=== PATIENT | female | born 2005 | race Caucasian/White ===

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

== ENCOUNTER 2023-02-14 11:52 | Emergency (ER) | payer MEDICAID, SELFPAY ==
[2023-02-14 11:57] VITALS: BP 115/79; PULSE 82; RESP 16; TEMP 36.7; O2SAT 100
--- NOTE | 2023-02-14 12:36 | W.ED.HA ---
HPI - Headache General: Chief Complaint: Headache Stated Complaint: Migrane Time Seen by Provider: 02/14/23 12:20 History of Present Illness: Patient presents to the ER with complaints of a migraine starting yesterday. Patient does states she has very frequent migraines. She is not on any migraine medicine. Patient says she has a brain tumor that they have been following for the longest time. Patient also states she has had some nausea and having more confusion than normal. MD elicited complaint: headache and migraine Pertinent past history: migraines Onset (ago): day(s) (Yesterday) Onset description: gradually Location: frontal Severity: moderate Quality & Timing: aching and similar to previous headaches Exacerbating factors: none Relieving factors: nothing Associated symptoms: Reports nausea and vomiting Treatments prior to arrival: none Review of Systems General: Reports: 10 or more systems reviewed and unremarkable except in HPI and below GI: Reports: nausea and vomiting PFS ED PFSH: Medical History Asthma Benign brain tumor Has Neurologist at [facility]. Chronic headaches Chronic sinus infection High thyroid stimulating hormone (TSH) level No pertinent past medical history Neghs: htn,dm,dvt/pe PCP: Sade Chase Surgical History Hx of brain surgery Mid brain tumor- benign; bypass. Has Neurologist at [facility]. Family History Grandmother Breast cancer maternal--unknown dx paternal-- dx in her 30's Diabetes paternal Father Diabetes Heart disease Hypertension Hyperchloremia Stroke Family/Other Diabetes paternal uncle Family history of thyroid problem maternal aunt maternal cousin Grandfather Heart disease maternal Brother Hypertension Hyperchloremia Denies family history of Colon cancer Ovarian cancer Uterine cancer Physical Exam Const: COMMON NORMALS: no acute distress, patient oriented x3, no limitations, healthy appearing, alert and well nourished HENMT: COMMON NORMALS: normocephalic, atraumatic, hearing grossly normal bilaterally, external ears normal, Normal external nose present and moist oral mucous membranes HEAD & SCALP: normocephalic and atraumatic NOSE: Normal external nose present EXTERNAL EAR: Yes external ears normal Eye: COMMON NORMALS: Equal, round and reactive pupils present, EOMs intact bilaterally, conjunctivae normal and no scleral icterus CONJUNCTIVA: Yes conjunctivae normal PUPIL: Yes Equal, round and reactive pupils present Neck/C-Spine: COMMON NORMALS: full ROM, no lymphadenopathy, supple, no meningeal signs, no JVD and Thyroid normal THYROID: Thyroid normal Lymph: LYMPHATIC: no lymphadenopathy noted Chest: COMMONS NORMALS: normal inspection of the chest and normal palpation of entire chest wall Resp: COMMON NORMALS: normal respiratory effort, No retractions, No use of accessory muscles and clear to auscultation bilaterally AUSCULTATION: clear to auscultation bilaterally Cardio: COMMON NORMALS: no JVD, regular rate, regular rhythm, S1 normal heart sound present and S2 normal heart sound present RATE: regular rate RHYTHM: regular rhythm HEART SOUNDS: S1 normal heart sound present and S2 normal heart sound present GI: COMMON NORMALS: Normal to inspection, nondistended, normoactive bowel sounds present, Soft to palpation, non-tender, No hepatosplenomegaly present and no masses PALPATION: Yes Soft to palpation and Yes No hepatosplenomegaly present : COMMON NORMALS: Yes no CVA tenderness BLADDER/KIDNEY EXAM: Yes no CVA tenderness Back/Pelvis: COMMON NORMALS: no CVA tenderness Neuro: COMMON NORMALS: patient oriented x3 SENSORIUM/ORIENTATION: Yes alert MENINGEAL SIGNS: Yes no meningeal signs Course Vital Signs: Vital signs: Vital Signs Temperature 98.1 F 02/14/23 11:57 Pulse Rate 82 02/14/23 11:57 Respiratory Rate 16 02/14/23 11:57 Blood Pressure 115/79 02/14/23 11:57 Pulse Oximetry 100 02/14/23 11:57 Oxygen Delivery Me thod Room Air 02/14/23 11:57 MDM - Headache Medical Decision Making Patient presents to the ER with complaints of migraine headache for the last several days. Patient does have a history of migraines and history of a brain tumor. Patient has tried [id number] medicines and wrist to no avail. Patient was evaluated here in ER as well as had a CT scan which was negative. Patient was given 1 L normal saline, 50 mg Benadryl, 25 mg of Phenergan, 60 mg of Toradol, 10 mg of Decadron, and 500 mg of Depakote. Patient stated that these change her headache. Patient be discharged home to rest and try to sleep it off. Patient should follow-up with her neurologist and/or primary care doctor at next available. Differential Diagnosis Likely migraine and headache; Unlikely tension headache, subarachnoid hemorrhage, meningitis, sinusitis or postconcussion syndrome Medical Records I reviewed the patient's medical records. Lab Data I reviewed the patient's lab results. Radiology Impressions Head CT 02/14/23 13:31 IMPRESSION: Negative noncontrast head CT. Discharge Plan Discharge Patient Disposition: Home Clinical Impression: Migraine Qualifiers: Migraine type: unspecified Status migrainosus presence: without status migrainosus Intractability: not intractable Qualified Code(s): G43.909 - Migraine, unspecified, not intractable, without status migrainosus Condition: Stable Prescriptions: No Action magnesium gluconate 500 mg tablet 500 mg PO TID metoclopramide HCl [Reglan] 10 mg tablet 10 mg PO Q6H PRN (Reason: Nausea And Vomiting) mecobalamin (vitamin B12) [B12 Active] 1,000 mcg tablet,chewable See Rx Instructions PO DAILY Rx Instructions: 250mg orally daily; fluoxetine 20 mg capsule 20 mg PO DAILY Qty: 90 0RF albuterol sulfate 90 mcg/actuation HFA aerosol inhaler 2 puff INHALATION Q6H PRN (Reason: asthma) Qty: 6.7 2RF azelastine-fluticasone 137-50 mcg/spray spray,non-aerosol 1 spray intranasal BID PRN (Reason: Allergy Symptoms) Qty: 23 3RF Rx Instructions: administer into each nostril levocetirizine [Xyzal] 5 mg tablet 5 mg PO DAILY Qty: 90 0RF montelukast 10 mg tablet 10 mg PO DAILY Qty: 90 0RF ibuprofen 800 mg tablet 800 mg PO TID PRN (Reason: pain) Qty: 60 0RF acetaminophen 325 mg capsule 325 mg PO Q4H PRN (Reason: fever or pain) Qty: 60 0RF Discharge Orders: Discharge ED (Routine); Ordered 02/14/23 Ordered By: Tylor Fregoso Referrals: Kalli Chase FNP [Primary Care Provider] - Patient Instructions: Migraine Headache (ED) Activity Restrictions/Additional Instructions: Please follow-up with your family practice doctor and/or your neurologist at the next available appointment. Coding Level of Care Code ED Regional Truck Driver for Stefania Burris
[2023-02-14] MEDS: dexamethasone 10 mg/mL INJ IM (12:38)
[2023-02-14] MEDS: promethazine 25 mg/mL SDV 1 mL IM (12:40)
[2023-02-14] MEDS: ketorolac 60 mg/2 mL INJ IM (12:42)
--- NOTE | 2023-02-14 13:31 | CT_ITS ---
WS: [id number] CT HEAD NONCONTRAST HISTORY: headache, n/v, hx of brain tumor TECHNIQUE: Contiguous axial imaging performed through the brain in 2.5 mm imaging. Bone and soft tiss ue windows. Sagittal and coronal reformats reviewed. All CT scans at [facility] use at least one of these dose optimization techniques: automated exposure control; mA and/or kV adjustment per pa tient size (includes targeted exams where dose is matched to clinical indication); or iterative recon struction. DLP: 1037.68 mGy.cm COMPARISON: 07/14/2020 and 07/12/2020 No acute intracranial hemorrhage, midline shift or mass effect. No atrophy or prior infarcts or herniation. Prominent perivascular space along the LEFT inferior bas al ganglia. Ventricles: Normal size with no hydrocephalus. Paranasal sinuses: As visualized are clear. Mastoid air cells: Well pneumatized. Calvarium and scalp: Skull is intact with no soft tissue edema or swelling. CT/CT head wo con* [id number] IMPRESSION: Negative noncontrast head CT.
[2023-02-14] MEDS: valproic acid inj 500 MG in sodium chloride 0.9% 50 ML 55 MG IV (13:55)
[2023-02-14] MEDS: sodium chloride 0.9% 1,000 ML 999 ML IV (13:55)
[2023-02-14] MEDS: diphenhydrAMINE 50 mg/mL SDV 1mL IVP (13:55)
[2023-02-14 14:59] VITALS: BP 131/76; PULSE 73; RESP 16; O2SAT 100
== END 2023-02-14 15:00 | disposition home or self-care (01) ==
PROVIDERS: Emergency Provider Emergency Medicine; PCP Nurse Practitioner Family
DX: G43.909 Migraine, unspecified, not intractable, without status migrainosus (principal)
CPT/HCPCS: 70450; 96365; 96372; 96375; 99285; J1100; J1200; J1885; J2550; J3490; J7030

== ENCOUNTER 2023-05-07 17:48 | Emergency (ER) | payer MEDICAID, SELFPAY ==
[2023-05-07 17:57] VITALS: BP 135/89; PULSE 82; RESP 15; TEMP 36.8; O2SAT 96
[2023-05-07 18:02] VITALS: BP 128/71; PULSE 80; O2SAT 97
--- NOTE | 2023-05-07 18:28 | ED_ITS ---
HPI - Headache General: Chief Complaint: Headache Stated Complaint: headache, neurologist said go to er Time Seen by Provider: 05/07/23 18:14 Source: patient History of Present Illness: 17-year-old female with a history of migraine headache. She also has a history of benign tumor. She says she has not had an MRI in a while. She had a CT in January that was negative. Her last headache was 2 to 3 weeks ago. She has been taking Tylenol without significant relief. Duration is 2 days. Nausea with no vomiting. No fever. She says she is somewhat dizzy. These are not uncommon symptoms of her headaches. Associated symptoms: Reports nausea and photophobia; Deny chest pain, confusion, cough, eye pain, eye redness, fever(s), neck stiffness, short of breath or vomiting Treatments prior to arrival: acetaminophen Review of Systems Const: Denies: fever(s) ENMT: Denies: throat pain Card: Denies: chest pain Resp: Denies: dyspnea, productive cough or non-productive cough GI: Reports: nausea; Denies: abdominal pain or vomiting Musc: Denies: neck pain Neuro: Reports: headache(s); Denies: numbness in extremities or confusion PFSH ED PFSH: Medical History Asthma Benign brain tumor Has Neurologist at [facility]. Chronic headaches Chronic sinus infection High thyroid stimulating hormone (TSH) level No pertinent past medical history Neghs: htn,dm,dvt/pe PCP: Sade Chase Surgical History Hx of brain surgery Mid brain tumor- benign; bypass. Has Neurologist at [facility]. Family History Grandmother Breast cancer maternal--unknown dx paternal-- dx in her 30's Diabetes paternal Father Diabetes Heart disease Hypertension Hyperchloremia Stroke Family/Other Diabetes paternal uncle Family history of thyroid problem maternal aunt maternal cousin Grandfather Heart disease maternal Brother Hypertension Hyperchloremia Denies family history of Colon cancer Ovarian cancer Uterine cancer Physical Exam Const: COMMON NORMALS: no acute distress GENERAL APPEARANCE: cooperative; not ill appearing and not frail appearing HENMT: COMMON NORMALS: normocephalic, atraumatic and Normal external nose present HEAD & SCALP: normocephalic and atraumatic FACE & SINUS: normal facial exam and face symmetric NOSE: Normal external nose present Eye: COMMON NORMALS: Equal, round and reactive pupils present and EOMs intact bilaterally PUPIL: Yes Equal, round and reactive pupils present DIRECT OPHTHALMOSCOPY: Yes photophobia Neck/C-Spine: GENERAL: Yes trachea midline Chest: CHEST: Yes Symmetrical chest wall rise Resp: COMMON NORMALS: normal respiratory effort, No retractions, No use of accessory muscles and clear to auscultation bilaterally AUSCULTATION: clear to auscultation bilaterally Cardio: COMMON NORMALS: regular rate and regular rhythm RATE: regular rate RHYTHM: regular rhythm GI: COMMON NORMALS: Normal to inspection, nondistended, normoactive bowel sounds present Extremity: COMMON NORMALS: no pedal edema Neuro: LUIS ENRIQUE COMA SCALE: document GCS findings Luis Enrique coma scale eye opening: Spontaneous [place] coma scale verbal response: Orientated Luis Enrique coma scale motor response: Obey commands [place] coma scale total score: 15 SENSORY EXAM: Yes extremities (intact) Psych: COMMON NORMALS: speech normal SPEECH: Yes normal speech Skin: COMMON NORMALS: no rashes or lesions noted GENERAL SKIN EXAM: no rashes or lesions noted Course Vital Signs: Vital signs: Vital Signs Temperature 98.3 F 05/07/23 20:26 Pulse Rate 80 05/07/23 20:26 Respiratory Rate 18 05/07/23 20:26 Blood Pressure 128/71 05/07/23 20:26 Pulse Oximetry 99 05/07/23 20:26 Oxygen Delivery Me thod Room Air 05/07/23 17:57 MDM - Headache Medical Decision Making Patient has no neurological signs or symptoms. Headache is improved after migraine cocktail of medication including Depacon, Reglan, morphine, Toradol, and dexamethasone. She will be allowed discharge. Discharge Plan Discharge Patient Disposition: Home Clinical Impression: Headache Condition: Stable Prescriptions: No Action magnesium gluconate 500 mg tablet 500 mg PO TID metoclopramide HCl [Reglan] 10 mg tablet 10 mg PO Q6H PRN (Reason: Nausea And Vomiting) mecobalamin (vitamin B12) [B12 Active] 1,000 mcg tablet,chewable See Rx Instructions PO DAILY Rx Instructions: 250mg orally daily; fluoxetine 20 mg capsule 20 mg PO DAILY Qty: 90 0RF albuterol sulfate 90 mcg/actuation HFA aerosol inhaler 2 puff INHALATION Q6H PRN (Reason: asthma) Qty: 6.7 2RF azelastine-fluticasone 137-50 mcg/spray spray,non-aerosol 1 spray intranasal BID PRN (Reason: Allergy Symptoms) Qty: 23 3RF Rx Instructions: administer into each nostril levocetirizine [Xyzal] 5 mg tablet 5 mg PO DAILY Qty: 90 0RF montelukast 10 mg tablet 10 mg PO DAILY Qty: 90 0RF ibuprofen 800 mg tablet 800 mg PO TID PRN (Reason: pain) Qty: 60 0RF acetaminophen 325 mg capsule 325 mg PO Q4H PRN (Reason: fever or pain) Qty: 60 0RF Discharge Orders: Discharge ED (Routine); Ordered 05/07/23 Ordered By: Hernandez Pineda Referrals: Kalli Chase, FLIGHT CONTROLS ENGINEER [Primary Care Provider] - 1-3 days Patient Instructions: Acute Headache (ED), Pain Management Activity Restrictions/Additional Instructions: Return for mental status changes, weakness, seizure, any other concerning symptoms. Stay hydrated for the next 24 hours. Follow-up with your doctor next week, if migraine headaches are becoming more frequent, other treatment options may exist. Coding Level of Care Code ED Is/It Project Manager for Stefania Burris
[2023-05-07 18:41] VITALS: RESP 18; O2SAT 99
[2023-05-07] MEDS: morphine 4 mg/mL SDV 1 mL IVP ×2 (18:41→19:51)
[2023-05-07] MEDS: sodium chloride 0.9% 1,000 ML 999 ML IV (18:41)
[2023-05-07] MEDS: ketorolac 30 mg/mL INJ IVP (18:45)
[2023-05-07] MEDS: metoclopramide 5 mg/mL SDV 2 mL 10 MG IVP (18:45)
[2023-05-07] MEDS: dexamethasone 10 mg/mL INJ IVP (18:45)
[2023-05-07] MEDS: valproic acid inj 500 MG in sodium chloride 0.9% 50 ML 55 MG IV (19:51)
[2023-05-07 20:26] VITALS: BP 128/71; PULSE 80; RESP 18; TEMP 36.8; O2SAT 99
== END 2023-05-07 20:27 | disposition home or self-care (01) ==
PROVIDERS: Emergency Provider Emergency Medicine; PCP Nurse Practitioner Family
DX: R51.9 Headache, unspecified (principal)
CPT/HCPCS: 96365; 96375; 96376; 99284; J1100; J1885; J2270; J2765; J3490; J7030

== ENCOUNTER 2023-07-11 11:38 | Emergency (ER) | payer MEDICAID, SELFPAY ==
[2023-07-11 11:39] VITALS: BP 117/80; PULSE 76; RESP 16; TEMP 36.8; O2SAT 99; BMI 34.0
--- NOTE | 2023-07-11 12:12 | ED_ITS ---
HPI - Headache General: Chief Complaint: Headache Stated Complaint: headache/vision issue/diagnosed brain tumor Time Seen by Provider: 07/11/23 11:52 Source: patient Mode of arrival: ambulatory History of Present Illness: 17-year-old female presents to the emergency room with complaint of migraine and a red spot in her eye. Patient chronically has migraines. She has vision changes nausea vomiting with some at times as well. She has remote history of benign brain tumor that was resected several years ago she has had multiple follow-up since and no significant findings. Recent CTs and MRIs reviewed on chart and were normal. Biggest complaint today is that of a red spot at the 6 o'clock position on her right eye. She notes that she has dry eyes at times and she rubs in that area she has noted it seems to be getting bigger. She is not on any anticoagulation. No recent trauma. MD elicited complaint: migraine Onset (ago): day(s) Location: frontal Severity: moderate Quality & Timing: throbbing Exacerbating factors: none Relieving factors: nothing Associated symptoms: Deny chest pain, confusion, cough, diaphoresis, eye pain, eye redness, fever(s), lightheadedness, loss of vision, malaise, nausea, neck stiffness, numbness, paresthesias, photophobia, pre-syncope, rash, seizures, short of breath, sound sensitivity, syncope, vomiting or weakness Review of Systems Const: Denies: fever(s), malaise or diaphoresis Card: Denies: chest pain, lightheadedness, syncope or pre-syncope Resp: Denies: dyspnea GI: Denies: nausea or vomiting : Denies: dysuria, urinary frequency or urinary urgency Musc: Denies: neck pain or back pain Skin/Breast: Denies: rash Neuro: Denies: confusion PFSH ED PFSH: Medical History Asthma Benign brain tumor Has Neurologist at [facility]. Chronic headaches Chronic sinus infection High thyroid stimulating hormone (TSH) level No pertinent past medical history Neghs: htn,dm,dvt/pe PCP: Sade Chase Surgical History Hx of brain surgery Mid brain tumor- benign; bypass. Has Neurologist at [facility]. Family History Grandmother Breast cancer maternal--unknown dx paternal-- dx in her 30's Diabetes paternal Father Diabetes Heart disease Hypertension Hyperchloremia Stroke Family/Other Diabetes paternal uncle Family history of thyroid problem maternal aunt maternal cousin Grandfather Heart disease maternal Brother Hypertension Hyperchloremia Denies family history of Colon cancer Ovarian cancer Uterine cancer Physical Exam Const: COMMON NORMALS: no acute distress GENERAL APPEARANCE: cooperative and comfortable ORIENTATION/CONSCIOUSNESS: Yes awake, Yes oriented to person, Yes oriented to place and Yes oriented to time HENMT: COMMON NORMALS: normocephalic, atraumatic and hearing grossly normal bilaterally HEAD & SCALP: normocephalic and atraumatic Eye: DIRECT OPHTHALMOSCOPY: No photophobia Resp: COMMON NORMALS: normal respiratory effort, No retractions, No use of accessory muscles and clear to auscultation bilaterally AUSCULTATION: clear to auscultation bilaterally Cardio: COMMON NORMALS: regular rate, regular rhythm and No murmurs present (Cardio) RATE: regular rate RHYTHM: regular rhythm GI: COMMON NORMALS: Soft to palpation and No hepatosplenomegaly present AUSCULTATION: Yes normoactive bowel sounds PALPATION: Yes Soft to palpation, No Tenderness to palpation present (GI), No Guarding due to palpation present (GI) and Yes No hepatosplenomegaly present Extremity: COMMON NORMALS: normal to inspection, capillary refill normal, no clubbing, cyanosis or edema, no calf tenderness and no pedal edema Neuro: SENSORIUM/ORIENTATION: Yes oriented to person, Yes oriented to place and Yes oriented to time Skin: COMMON NORMALS: no rashes or lesions noted GENERAL SKIN EXAM: no rashes or lesions noted Course Vital Signs: Vital signs: Vital Signs Temperature 98.3 F 07/11/23 11:39 Pulse Rate 80 07/11/23 12:49 Respiratory Rate 17 07/11/23 12:49 Blood Pressure 133/62 07/11/23 12:49 Pulse Oximetry 96 07/11/23 12:49 Oxygen Delivery Me thod Room Air 07/11/23 11:39 MDM - Headache Medical Decision Making There are no focal neurologic deficits noted. Her migraines are chronic. She has a small subconjunctival hematoma. Given her history or current symptoms or findings I do not believe she requires any advanced imaging. For the dry eyes think she should use preservative-free eyedrops liberally. She admits to rubbing her eyes frequently because of her dry eyes I think some of this is from trauma. Additionally myxomas from the vomiting that she has had. We did give her some Phenergan offered several times Encouraged her to consider other medications while in the ER and prophylactic medications at discharge for migraines she states she is dealt with these for a long time and she really would prefer not to do anything different for now. Did encourage her to follow-up with her neurologist I think it would be helpful for her to look at getting started on some kind of migraine prophylaxis. She has not in the past due to the last time it was discussed with her neurologist that she was at the time. Medical Records I reviewed the patient's medical records. Lab Data I reviewed the patient's lab results. No radiology studies performed this visit Discharge Plan Discharge Patient Disposition: Home Clinical Impression: LIEN (subconjunctival hemorrhage), Migraine Condition: Stable Prescriptions: New promethazine 25 mg tablet 25 mg PO Q6H PRN (Reason: Headache, nausea or vomiting) Qty: 20 0RF No Action albuterol sulfate 90 mcg/actuation HFA aerosol inhaler 2 puff INHALATION Q6H PRN (Reason: asthma) Qty: 6.7 2RF ibuprofen 800 mg tablet 800 mg PO TID PRN (Reason: pain) Qty: 60 0RF acetaminophen 325 mg capsule 325 mg PO Q4H PRN (Reason: fever or pain) Qty: 60 0RF magnesium 200 mg Tablet 200 mg PO DAILY fexofenadine 180 mg tablet 180 mg PO DAILY Rx Instructions: Take 1 tablet by mouth once daily Discharge Orders: Discharge ED (Routine); Ordered 07/11/23 Ordered By: Prashanth Cutler Referrals: Kalli Chase FNP [Primary Care Provider] - Discharge Diet: Usual diet Discharge Activity: Increase activity as tolerated Patient Instructions: Opioid Safety, Pain Management Activity Restrictions/Additional Instructions: Follow-up with your neurologist for migraine management. Coding Level of Care Code ED Veterinary Nurse for Stefania Burris
[2023-07-11 12:49] VITALS: BP 133/62; PULSE 80; RESP 17; O2SAT 96
== END 2023-07-11 12:51 | disposition home or self-care (01) ==
PROVIDERS: Emergency Provider Family Medicine; PCP Nurse Practitioner Family
DX: G43.909 Migraine, unspecified, not intractable, without status migrainosus (principal); H11.31 Conjunctival hemorrhage, right eye; X58.XXXA Exposure to other specified factors, initial encounter
CPT/HCPCS: 99283

== ENCOUNTER 2023-10-21 12:18 | Emergency (ER) | payer MEDICAID, SELFPAY ==
[2023-10-21 12:31] VITALS: BP 138/84; PULSE 84; RESP 18; TEMP 36.8; O2SAT 99; BMI 33.6
--- NOTE | 2023-10-21 13:38 | CTR_ITS ---
PROCEDURE INFORMATION: Exam: CT Head Without Contrast Exam date and time: 10/21/2023 3:05 PM Age: 18 years old Clinical indication: Pain; Headache; Additional info: Headache, pressure, n/v TECHNIQUE: Imaging protocol: Computed tomography of the head without contrast. Radiation optimization: All CT scans at this facility use at least one of these dose optimization techniques: automated exposure control; mA and/or kV adjustment per patient size (includes targeted exams where dose is matched to clinical indication); or iterative reconstruction. COMPARISON: CT head wo con* [id number] 02/14/2023 1:42 PM RADIATION DOSE METRICS: Total DLP (mGy-cm): 1010.18 FINDINGS: Brain: Normal. No hemorrhage. Unremarkable white matter. No mass effect. Cerebral ventricles: No ventriculomegaly. Pituitary gland and sella: Normal. Paranasal sinuses: Visualized sinuses are unremarkable. No fluid levels. Mastoid air cells: Visualized mastoid air cells are well aerated. Bones/joints: Unremarkable. No acute fracture. Soft tissues: Unremarkable. CT/CT head wo con* [id number] IMPRESSION: No large territorial infarct or intracranial bleed.
--- NOTE | 2023-10-21 14:00 | W.ED.HA ---
HPI - Headache General: Chief Complaint: Headache Stated Complaint: headache, weakness, nausea Time Seen by Provider: 10/21/23 13:12 History of Present Illness: Patient is a 18 yo female that presents with complaint of migraine. Patient reports she has headaches every day but this 1 is worse since last night. She reports nausea and vomiting, light sensitivity, and some blurry vision. 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 She was referred to [facility] and underwent intracranial procedure with due to hydrocephalus (not a shunt). Patient has not followed up appropriately. He has both neurosurgeon and neurology at [facility] that she has not seen in greater than 1 year. Associated symptoms: Deny chest pain, confusion, fever(s), malaise, nausea, rash or vomiting Review of Systems General: Reports: 10 or more systems reviewed and unremarkable except in HPI and below Const: Denies: fever(s), chills, change in appetite, change in weight, fatigue or malaise Eyes: Denies: change in vision, eye discomfort, eye discharge or eye redness ENMT: Denies: throat pain, enlarged tonsils, odynophagia, hoarseness, ear or mastoid pain, ear discharge, change in hearing, tinnitus, nasal discharge, nasal congestion, post nasal drip or sinus pain Card: Denies: chest pain, palpitations, irregular heart rhythm, edema, dyspnea on exertion, orthopnea or leg pain with exertion Resp: Denies: dyspnea, productive cough, non-productive cough, wheezing, stridor or chest congestion GI: Denies: abdominal pain, nausea, vomiting, dysphagia, diarrhea, constipation, bloating, GI cramping or hematochezia : Denies: flank pain, difficulty voiding, dysuria, urinary frequency, urinary urgency, urinary hesitancy, oliguria or hematuria Musc: Denies: neck pain, back pain, extremity pain, joint pain, joint swelling, joint redness, joint warmth or muscle weakness Skin/Breast: Denies: rash, pruritus, erythema, photosensitivity or new lesions Neuro: Reports: headache(s) and sensory changes (Left upper and left lower extremity-chronic); Denies: numbness in extremities, weakness in extremities, lack of coordination, difficulty walking, frequent falls, dizziness, confusion, Slurred speech present, difficulty communicating thoughts, seizure-like activity or involuntary movements Endo: Denies: polyuria, polydipsia or tired all the time Brendon/Lymph: Denies: easy bruising or easy bleeding PFSH ED PFSH: Medical History Asthma Benign brain tumor Has Neurologist at [facility]. Chronic headaches Chronic sinus infection High thyroid stimulating hormone (TSH) level No pertinent past medical history Neghs: htn,dm,dvt/pe PCP: Sade Chase Surgical History Hx of brain surgery Mid brain tumor- benign; bypass. Has Neurologist at [facility]. Family History Grandmother Breast cancer maternal--unknown dx paternal-- dx in her 30's Diabetes paternal Father Diabetes Heart disease Hypertension Hyperchloremia Stroke Family/Other Diabetes paternal uncle Family history of thyroid problem maternal aunt maternal cousin Grandfather Heart disease maternal Brother Hypertension Hyperchloremia Denies family history of Colon cancer Ovarian cancer Uterine cancer Physical Exam Const: COMMON NORMALS: no acute distress, patient oriented x3 and alert GENERAL APPEARANCE: cooperative ORIENTATION/CONSCIOUSNESS: Yes awake, Yes oriented to person, Yes oriented to place and Yes oriented to time HENMT: COMMON NORMALS: normocephalic and atraumatic HEAD & SCALP: normocephalic and atraumatic FACE & SINUS: normal facial exam MOUTH: Normal oral and palatal mucosa present THROAT: posterior oropharynx normal Eye: COMMON NORMALS: Equal, round and reactive pupils present, EOMs intact bilaterally, conjunctivae normal and no scleral icterus GENERAL EYE: appearance normal, both eyes and all related structures VISUAL ACUITY: Yes acuity normal VISUAL GAMEZ: No peripheral vision loss and No central vision loss ALIGNMENT: Yes alignment normal PERIORBITAL: periorbital findings normal CONJUNCTIVA: Yes conjunctivae normal PUPIL: Yes Equal, round and reactive pupils present and Yes Pupil accommodation reflex normal Neck/C-Spine: COMMON NORMALS: full ROM GENERAL: Yes normal visual inspection Lymph: LYMPHATIC: no lymphadenopathy noted Chest: COMMONS NORMALS: normal inspection of the chest Breast/axilla inspection: Yes no chest deformity, asymmetry, normal contours, no nodules, masses, tenderness Resp: COMMON NORMALS: normal respiratory effort, No retractions, No use of accessory muscles and clear to auscultation bilaterally EFFORT & INSPECTION: Yes able to speak in complete sentences and Yes symmetric chest movement AUSCULTATION: clear to auscultation bilaterally Cardio: COMMON NORMALS: regular rate, regular rhythm and Peripheral pulses 2+ throughout RATE: regular rate RHYTHM: regular rhythm PERIPHERAL PULSES: Peripheral pulses 2+ throughout GI: COMMON NORMALS: Normal to inspection, nondistended, normoactive bowel sounds present, Soft to palpation, non-tender and No hepatosplenomegaly present INSPECTION: Yes normal to inspection AUSCULTATION: Yes normoactive bowel sounds PALPATION: Yes Soft to palpation and Yes No hepatosplenomegaly present RECTAL EXAM: deferred Extremity: COMMON NORMALS: normal to inspection GENERAL: Yes normal exam except as noted Neuro: LUIS ENRIQUE COMA SCALE: document [facility] findings Luis Enrique coma scale eye opening: Spontaneous [place] coma scale verbal response: Orientated [place] coma scale motor response: Obey commands [place] coma scale total score: 15 COMMON NORMALS: patient oriented x3 SENSORIUM/ORIENTATION: Yes alert, Yes oriented to person, Yes oriented to place and Yes oriented to time CRANIAL NERVES: Yes CN normal except as noted OTHER: Possible 1-2 beats nystagmus when looking up into the right. Difficult to replicate Psych: COMMON NORMALS: mental status grossly normal, Normal thought process present, cooperative, activity/motor behavior normal, denies homicidal ideation and denies suicidal ideation THOUGHT PROCESS: Normal thought process present Skin: COMMON NORMALS: no rashes or lesions noted, no wounds and turgor normal GENERAL SKIN EXAM: no rashes or lesions noted and turgor normal Course Vital Signs: Vital signs: Vital Signs Temperature 98.3 F 10/21/23 12:31 Pulse Rate 84 10/21/23 12:31 Respiratory Rate 18 10/21/23 12:31 Blood Pressure 138/84 10/21/23 12:31 Pulse Oximetry 99 10/21/23 12:31 Oxygen Delivery Me thod Room Air 10/21/23 12:31 [facility] - Headache Medical Decision Making Juli is a 18-year-old female with history of glioma that came in presenting with acute on chronic headache. Patient has a history of migraines but this headache seemed somewhat worse. She describes the pain as pressure. I did obtain a CT to assess for hydrocephalus,, hemorrhage, stroke. No acute findings on CT. I did treat her initially with Norflex, Toradol, Decadron to which she had some improvement but still had residual headache. Sumatriptan ordered. While awaiting this patient wanted to discharge home and follow-up with her neurosurgeon and neurologist in 2 weeks as planned. Since she has no neurodeficits and is completely appropriate at that I would allow her to discharge home with follow-up. I reviewed the case with Dr. Josue who is in agreement. Patient is to return to the emergency department for new concerning or worsening symptoms. Lab Data Radiology Impressions Head CT 10/21/23 13:38 IMPRESSION: No large territorial infarct or intracranial bleed. All radiology interpretation(s) finalized by discharge Discharge Plan Discharge Patient Disposition: Home Clinical Impression: Migraine Condition: Stable Prescriptions: No Action No Known Home Medications Discharge Orders: Discharge ED (Routine); Ordered 10/21/23 Ordered By: Jonathan Marte Referrals: Kalli Chase FNP [Primary Care Provider] - Discharge Diet: Advance as tolerated Discharge Activity: Resume usual activity Patient Instructions: Low-Grade Glioma (DC), Acute Headache (DC), Pain Management Activity Restrictions/Additional Instructions: Please follow-up with your neurosurgeon and neurologist as planned Please return to the emergency department for new concerning or worsening symptoms Coding Level of Care Code ED Computer Service Technician for Stefania Burris
[2023-10-21] MEDS: orphenadrine 30 mg/mL Inj 2 mL 60 MG IM (14:02)
[2023-10-21] MEDS: dexamethasone 10 mg/mL INJ IM (14:04)
[2023-10-21] MEDS: ketorolac 60 mg/2 mL INJ IM (14:06)
[2023-10-21] MEDS: SUMAtriptan 25 mg Tablet PO (16:44)
[2023-10-21 16:56] VITALS: BP 122/84; PULSE 80; O2SAT 98
== END 2023-10-21 16:58 | disposition home or self-care (01) ==
PROVIDERS: Emergency Provider Nurse Practitioner; PCP Nurse Practitioner Family
DX: G43.909 Migraine, unspecified, not intractable, without status migrainosus (principal)
CPT/HCPCS: 70450; 96372; 99284; J1100; J1885; J2360

== ENCOUNTER 2024-09-03 19:14 | Emergency (ER) | payer MEDICAID, SELFPAY ==
[2024-09-03] VITALS (8 sets, daily range): BP systolic 103–134; BP diastolic 49–83; PULSE 58–74; RESP 14; TEMP 36.7; O2SAT 92–100
[2024-09-03 20:45] LABS: Basophils % 0.4 %; Eosinophils # 0.4 10^3/uL (0.0-0.8); Eosinophils % 3.3 %; Hematocrit 41.2 % (36-47); Lymphocytes # 2.2 10^3/uL (0.8-4.8); Lymphocytes % 19.9 %; Mean Corpuscular HGB Conc 31.1 g/dL (30-55); Mean Corpuscular Hemoglobin 28.9 pg (27-33); Monocytes # 0.7 10^3/uL (0.2-0.9); Monocytes % 6.1 %; Neutrophils # 7.75 10^3/uL (1.8-7.7); Neutrophils % 69.9 %; Nucleated Red Blood Cells % 0 %; Platelet Count 302 10^3/cmm (157-399); Red Blood Count 4.43 10^6/uL (3.85-5.65); Red Cell Distribution Width 12.6 % (12.1-15.1); White Blood Count 11.07 10^3/uL (3.29-11.43)
[2024-09-03 21:00] LABS: HCG, Serum Qual Negative (Negative)
[2024-09-03 21:06] LABS: Alanine Aminotransferase 14 U/L (0-33); Albumin Level 4.3 g/dL (3.5-5.2); Alkaline Phosphatase 97 U/L (35-105); Anion Gap 19.3 (5-19); Aspartate Amino Transferase 15 U/L (0-32); Blood Urea Nitrogen 13 mg/dL (6-20); Calcium 9.7 mg/dL (8.5-10.5); Carbon Dioxide 28 mmol/L (22-29); Chloride 103 mmol/L (98-107); Creatinine Clr Calc Pharmacy 132.2841; Globulin 3.7 g/dL (1.3-4.6); Glomerular Filtration Rate 105.6 mL/min (90-130); Glucose 83 mg/dL (65-115); Lipase 26 U/L (13-60); Osmolality Calculated 301 mOsm/kg (285-295); Potassium 4.3 mmol/L (3.5-5.1); Sodium 146 mmol/L (136-145); Total Bilirubin 0.5 mg/dL (0.15-1.2)
[2024-09-03 21:12] LABS: Bilirubin Urine Negative (Negative); Blood Urine Negative (Negative); Glucose Urine UA Negative (Normal); Ketones Urine Trace (Negative); Leukocyte Esterase Urine Negative (Negative); Nitrate Urine Negative (Negative); Protein Urine Negative (Negative); Specific Gravity, Urine 1.028 (1.005-1.030); Urine Appearance Cloudy (CLEAR); Urine Color Yellow (Yellow); pH Urine 5.5 (5-7)
[2024-09-03 21:17] LABS: Add Urine Microscopic? YES; Bacteria Urine 4+ /hpf; Hyaline Casts Urine 1.21 /lpf; RBC Urine 0-2 /hpf (0-2); Squamous Epithelial Cell Urine 21-50 /hpf (0-5)
--- NOTE | 2024-09-03 21:26 | CTR_ITS ---
PROCEDURE INFORMATION: Exam: CT Abdomen And Pelvis With Contrast Exam date and time: 09/03/2024 9:55 PM Age: 19 years old Clinical indication: Abdominal pain; Localized; Right lower quadrant (rlq); Additional info: Rlq abd pain with anorexia and vomiting TECHNIQUE: Imaging protocol: Computed tomography of the abdomen and pelvis with contrast. Radiation optimization: All CT scans at this facility use at least one of these dose optimization techniques: automated exposure control; mA and/or kV adjustment per patient size (includes targeted exams where dose is matched to clinical indication); or iterative reconstruction. Contrast material: OMNI 350; Contrast volume: 100 ml; Contrast route: INTRAVENOUS (IV); COMPARISON: US OB limited [id number] 12/09/2022 10:28 AM RADIATION DOSE METRICS: Total DLP (mGy-cm): 812.05 FINDINGS: Lungs: Lung bases are unremarkable. Liver: The liver is unremarkable. Gallbladder and biliary ducts: No intrahepatic or extrahepatic biliary ductal dilatation. The gallbladder is unremarkable with no radioopaque stone. Pancreas: Pancreas is unremarkable. No ductal dilation or peripancreatic inflammation. Spleen: The spleen is unremarkable. Adrenal glands: Adrenal glands are unremarkable. Kidneys and ureters: No hydronephrosis or nephrolithiasis. Stomach and bowel: Stomach is not fully distended. Small hiatal hernia. Small and large bowel are normal in caliber without evidence of obstruction. Appendix: Appendix is unremarkable. Intraperitoneal space: No free intraperitoneal air. No fluid collection. Vasculature: There is no aortic aneurysm. Origins of the celiac, SMA, HERNAN and renal arteries are patent. Lymph nodes: Multiple prominent mesenteric nodes predominantly in the right lower quadrant, the largest of which measures 5.8 mm anterior to the right psoas muscle. Urinary bladder: No focal wall thickening of the urinary bladder. Reproductive: Uterus is unremarkable. No suspicious adnexal lesion seen. 3.2 cm left ovarian cyst. Bones/joints: No acute osseous abnormality. Soft tissues: There is a small fat containing umbilical hernia. CT/CT abdomen pelvis w con* [id number] IMPRESSION: Mesenteric adenitis.
--- NOTE | 2024-09-03 21:27 | ED_ITS ---
HPI - Abdominal Pain 2 General: Chief Complaint: Abdominal Pain Stated Complaint: abd pain Time Seen by Provider: 09/03/24 21:14 Source: patient Mode of arrival: ambulatory Limitations: no limitations History of Present Illness: Patient is a 19-year-old female with no pertinent past medical history reporting to the emergency department complaining of right lower quadrant abdominal pain for the past week. States it has been constant since but has been specifically worsened today, currently rating it an 8/10 and associated with anorexia and vomiting. She still has her gallbladder and appendix, no history of abdominal surgeries. Last bowel movement was this morning, she does state it was somewhat loose. She is not reporting any fever, chills, syncopal episodes, chest pain or shortness of breath. She does note she is actively trying to get , with the same partner. No female symptoms reported such as vaginal odor or discharge. Notes that her urine was a little cloudy, but no dysuria or hematuria. Has taken antiemetics at home, states this has not helped as much. She does note the pain radiates to the back, no specific alleviating or exacerbating factors reported other than trying to eat seems to make it more prevalent. MD elicited complaint: abdominal pain Pertinent past history: none Onset (ago): week(s) (2) Pain Consistency: intermittent Location: RLQ Severity: severe Pain scale (0-10): 8 Quality: stabbing Radiation: back Exacerbating factors: eating Relieving factors: nothing Associated Symptoms: Reports change in stool character, diarrhea and nausea; Denies bloating, chills, constipation, dysuria, fever(s), hematochezia, hematuria and vomiting Treatments prior to arrival: other (Antiemetics) Related Data Date of Last Menstrual Period: 08/18/24 Home Medications Medication Instructions Recorded Confirmed metoclopramide HCl 10 mg tablet 10 mg PO Q6H PRN 04/24/24 07/10/24 propranolol 10 mg tablet 10 mg PO BID 04/24/24 07/10/24 Previous Rx's Medication Instructions Recorded escitalopram oxalate 10 mg tablet 10 mg PO DAILY #30 tabs 07/10/24 (Lexapro) rizatriptan 5 mg tablet See Rx Instructions PO .COMPLEX #9 07/10/24 tabs Allergies Allergy/AdvReac Type Severity Reaction Status Date / Time cephalexin [From Keflex] Allergy rash Verified 09/03/24 19:49 Review of Systems 2 General: Reports: 10 or more systems reviewed and unremarkable except in HPI and below Const: Reports: change in appetite; Denies: fever(s), chills, change in weight or diaphoresis ENMT: Denies: throat pain or hoarseness Card: Denies: chest pain, palpitations or lightheadedness Resp: Denies: dyspnea, productive cough or wheezing GI: Reports: abdominal pain, nausea, diarrhea and change in stool character; Denies: vomiting, constipation, bloating or hematochezia : Denies: flank pain, difficulty voiding, dysuria, urinary frequency, urinary urgency, hematuria, vaginal odor, vaginal bleeding or vaginal discharge Musc: Reports: back pain; Denies: neck pain Skin/Breast: Denies: rash or new lesions Neuro: Denies: headache(s) or dizziness PFSH ED 2 PFSH: Medical History Migraine headache Incomplete miscarriage Environmental allergies Anxiety managed by PCP Chronic sinus infection Benign brain tumor Has Neurologist at [facility]. Asthma Surgical History Hx of brain surgery Mid brain tumor- benign; bypass. Has Neurologist at [facility]. Family History Grandmother Breast cancer maternal--unknown dx paternal-- dx in her 30's Diabetes paternal Father Diabetes Heart disease Hypertension Hyperchloremia Stroke Family/Other Diabetes paternal uncle Family history of thyroid problem maternal aunt maternal cousin Grandfather Heart disease maternal Brother Hypertension Hyperchloremia Denies family history of Colon cancer Ovarian cancer Uterine cancer Social History Smoking and tobacco/nicotine status: never used tobacco/nicotine Alcohol intake: never Substance/Drug Use: current Substance/Drug use frequency: few times a month Female Reproductive History: Date of last menstrual period: 08/18/24 Physical Exam 2 Const: COMMON NORMALS: no acute distress, patient oriented x3, no limitations, healthy appearing, alert and well nourished GENERAL APPEARANCE: cooperative and comfortable NUTRITIONAL APPEARANCE: obese ORIENTATION/CONSCIOUSNESS: Y es awake OTHER: nontoxic appearing HENMT: COMMON NORMALS: normocephalic, atraumatic, hearing grossly normal bilaterally, external ears normal, Normal external nose present, Normal nasal mucous membranes and turbinates present and moist oral mucous membranes HEAD & SCALP: normocephalic and atraumatic NOSE: Normal external nose present and Normal nasal mucous membranes and turbinates present EXTERNAL EAR: Yes external ears normal Eye: COMMON NORMALS: Equal, round and reactive pupils present, EOMs intact bilaterally, conjunctivae normal and normal visual darden by confrontation C ONJUNCTIVA: Yes conjunctivae normal PUPIL: Yes Equal, round and reactive pupils present Neck/C-Spine: COMMON NORMALS: full ROM, supple, no meningeal signs and no JVD Resp: COMMON NORMALS: normal respiratory effort, No retractions, No use of accessory muscles and clear to auscultation bilaterally AUSCULTATION: clear to auscultation bilaterally, no crackles, no rales, no rhonchi and no wheezes Cardio: COMMON NORMALS: no JVD, regular rate, regular rhythm, S1 normal heart sound present, S2 normal heart sound present, No gallops present (Cardio), No clicks present (Cardio), No murmurs present (Cardio), No rub (Cardio) and Peripheral pulses 2+ throughout RATE: regular rate RHYTHM: regular rhythm HEART SOUNDS: S1 normal heart sound present and S2 normal heart sound present PERIPHERAL PULSES: Peripheral pulses 2+ throughout GI: COMMON NORMALS: Normal to inspection, nondistended, normoactive bowel sounds present, Soft to palpation, No hepatosplenomegaly present and no masses INSPECTION: Yes central obesity AUSCULTATION: Yes normoactive bowel sounds PALPATION: Yes Soft to palpation, No Guarding due to palpation present (GI), No Rigid due to palpation and Yes No hepatosplenomegaly present RECTAL EXAM: d eferred OTHER: Bilateral lower quadrant tenderness to palpation. Negative McBurney's point tenderness. Negative Rovsing sign. Negative Pearl sign. : COMMON NORMALS: Yes no CVA tenderness BLADDER/KIDNEY EXAM: Yes no CVA tenderness Back/Pelvis: COMMON NORMALS: no CVA tenderness Extremity: COMMON NORMALS: normal to inspection and full ROM Neuro: COMMON NORMALS: patient oriented x3, moves all extremities, no focal motor deficits and no sensory deficits noted SENSORIUM/ORIENTATION: Yes alert MENINGEAL SIGNS: Yes no meningeal signs Psych: COMMON NORMALS: mental status grossly normal, cooperative and speech normal SPEECH: Yes normal speech Skin: COMMON NORMALS: no rashes or lesions noted GENERAL SKIN EXAM: no rashes or lesions noted Course 2 Vital Signs: Vital signs: Vital Signs Temperature 98.0 F 09/03/24 19:44 Pulse Rate 72 09/03/24 23:56 Respiratory Rate 14 09/03/24 19:44 Blood Pressure 112/69 09/03/24 23:56 Pulse Oximetry 92 09/03/24 23:56 Oxygen Delivery Me thod Room Air 09/03/24 23:00 MDM - Abdominal Pain Medical Decision Making Patient presenting with right lower quadrant abdominal pain for the past couple of weeks. Her CT scan showing signs of mesenteric adenitis, all of her blood work normal. She states she has appoint with primary care tomorrow, will have her to continue to treat conservatively with alternating Tylenol and ibuprofen and to drink plenty of fluids at home. No surgical abdomen at this time or concern for any infection. She agrees with discharge home. Lab Data 09/03/24 20:35 09/03/24 20:35 Labs/Radiology: Radiology Impressions Abdomen/Pelvis CT 09/03/24 21:26 IMPRESSION: Mesenteric adenitis. Laboratory Results WBC 11.07 10^3/uL (3.29-11.43) 09/03/24 20:35 RBC 4.43 10^6/uL (3.85-5.65) 09/03/24 20:35 Hgb 12.80 g/dL (11.27-16.99) 09/03/24 20:35 Hct 41.2 % (36-47) 09/03/24 20:35 MCV 93.0 fl (85-98) 09/03/24 20:35 MCH 28.9 pg (27-33) 09/03/24 20:35 MCHC 31.1 g/dL (30-55) 09/03/24 20:35 RDW 12.6 % (12.1-15.1) 09/03/24 20:35 Plt Count 302 10^3/cmm (157-399) 09/03/24 20:35 MPV 11.0 fL (7.4-10.4) H 09/03/24 20:35 Neut % (Auto) 69.9 % 09/03/24 20:35 Lymph % (Auto) 19.9 % 09/03/24 20:35 Dent % (Auto) 6.1 % 09/03/24 20:35 Eos % (Auto) 3.3 % 09/03/24 20:35 Baso % (Auto) 0.4 % 09/03/24 20:35 Neut # (Auto) 7.75 10^3/uL (1.8-7.7) H 09/03/24 20:35 Lymph # (Auto) 2.2 10^3/uL (0.8-4.8) 09/03/24 20:35 Dent # (Auto) 0.7 10^3/uL (0.2-0.9) 09/03/24 20:35 Eos # (Auto) 0.4 10^3/uL (0.0-0.8) 09/03/24 20:35 Baso # (Auto) 0.0 10^3/uL (0.0-0.1) 09/03/24 20:35 Nucleated RBC % (auto) 0 % 09/03/24 20:35 Nucleated RBCs # 0.0 /100WBC 09/03/24 20:35 Sodium 146 mmol/L (136-145) H 09/03/24 20:35 Potassium 4.3 mmol/L (3.5-5.1) 09/03/24 20:35 Chloride 103 mmol/L (98-107) 09/03/24 20:35 Carbon Dioxide 28 mmol/L (22-29) 09/03/24 20:35 Anion Gap 19.3 (5-19) H 09/03/24 20:35 BUN 13 mg/dL (6-20) 09/03/24 20:35 Creatinine 0.7 mg/dL (0.5-0.9) 09/03/24 20:35 GFR Calculation 105.6 mL/min (90-130) 09/03/24 20:35 Glucose 83 mg/dL (65-115) 09/03/24 20:35 Calculated Osmolality 301 mOsm/kg (285-295) H 09/03/24 20:35 Calcium 9.7 mg/dL (8.5-10.5) 09/03/24 20:35 Total Bilirubin 0.5 mg/dL (0.15-1.2) 09/03/24 20:35 AST 15 U/L (0-32) 09/03/24 20:35 ALT 14 U/L (0-33) 09/03/24 20:35 Alkaline Phosphatase 97 U/L (35-105) 09/03/24 20:35 Total Protein 8.0 g/dL (6.6-8.7) 09/03/24 20:35 Albumin 4.3 g/dL (3.5-5.2) 09/03/24 20:35 Globulin 3.7 g/dL (1.3-4.6) 09/03/24 20:35 Lipase 26 U/L (13-60) 09/03/24 20:35 HCG, Qual Negative (Negative) 09/03/24 20:35 Urine Color Yellow (Yellow) 09/03/24 21:03 Urine Appearance Cloudy (CLEAR) A 09/03/24 21:03 Urine pH 5.5 (5-7) 09/03/24 21:03 Ur Specific [place] 1.028 (1.005-1.030) 09/03/24 21:03 Urine Protein Negative (Negative) 09/03/24 21:03 Urine Glucose (UA) Negative (Normal) 09/03/24 21:03 Urine Ketones Trace (Negative) 09/03/24 21:03 Urine Blood Negative (Negative) 09/03/24 21:03 Urine Nitrate Negative (Negative) 09/03/24 21:03 Urine Bilirubin Negative (Negative) 09/03/24 21:03 Urine Urobilinogen 1.0 mg/dL (Negative) 09/03/24 21:03 Ur Leukocyte Esterase Negative (Negative) 09/03/24 21:03 Urine RBC 0-2 /hpf (0-2) 09/03/24 21:03 Urine WBC 6-10 /hpf (0-5) 09/03/24 21:03 Ur Squamous Epith Cells 21-50 /hpf (0-5) 09/03/24 21:03 Calcium Oxalate Crystal 5-10 /hpf H 09/03/24 21:03 Amorphous Sediment Not Reportable 09/03/24 21:03 Urine Bacteria 4+ /hpf (NONE) H 09/03/24 21:03 Hyaline Casts 1.21 /lpf 09/03/24 21:03 All radiology interpretation(s) finalized by discharge Discharge Plan Discharge Patient Disposition: Home Clinical Impression: Mesenteric adenitis Condition: Stable Prescriptions: No Action escitalopram oxalate [Lexapro] 10 mg tablet 10 mg PO DAILY Qty: 30 1RF rizatriptan 5 mg tablet See Rx Instructions PO .COMPLEX Qty: 9 3RF Rx Instructions: take 1 tablet at onset of headache; if no relief, may repeat 1 tablet after at least 2 hrs PO propranolol 10 mg tablet 10 mg PO BID metoclopramide HCl 10 mg tablet 10 mg PO Q6H PRN Discharge Orders: Discharge ED (Routine); Ordered 09/03/24 Ordered By: Mauricio Gordon Referrals: Han Trinh MD [Primary Care Provider] - Patient Instructions: Mesenteric Adenitis (ED) Activity Restrictions/Additional Instructions: See attached patient instructions for further education. Likely this is viral, treat conservatively by alternating Tylenol and ibuprofen for any pain or fevers. Make sure to drink plenty of fluids. Please follow-up with primary care and return with any new or worsening. Coding Level of Care Code ED Electroencephalograph Technologist for Stefania Burris
[2024-09-03] MEDS: ondansetron 2 mg/ML SDV 2 mL 8 MG IVP (21:35)
[2024-09-03 21:41] LABS: UA Slide Review UA Slide Review Perf
[2024-09-03] MEDS: iohexol 350 mg/mL 500 mL Btl (per mL) IV (21:58)
== END 2024-09-03 23:56 | disposition home or self-care (01) ==
PROVIDERS: Emergency Medicine; Emergency Provider Physician Assistant; PCP Family Medicine
DX: I88.0 Nonspecific mesenteric lymphadenitis (principal)
CPT/HCPCS: 36415; 74177; 80053; 81001; 83690; 84703; 85025; 96374; 99285; J2405

== ENCOUNTER 2025-08-02 21:10 | Emergency (ER) | payer MEDICAID, SELFPAY ==
--- OUTSIDE RECORDS SUMMARY | 2025-08-02 21:15 | XMS_ITS | Clinical Summary ---
Author Organization [facility] Address [address] [place]: Epic Prelude ADT LORI STILES [id number] Care Team Providers Care Identification And Records Commander Name Role Phone Unavailable Primary Care Provider Unavailabl e Allergies Active Allergy Reactions Criticality Noted Date Comments Cephalexin Nausea and Vomiting Low 10/17/2016 Medications neomycin-polymy dave-hydrocortis one (CORTISPORIN) 3.5-10,000-1 mg/mL-unit/mL-% otic solution Administer 3 Drops in left ear 3 times daily. 10 mL 0 8 Active fluticasone propionate (FLONASE) 50 mcg/spray Fine, Suspension nasal inhaler USE 2 SPRAY(S) IN EACH NOSTRIL ONCE DAILY. 48 mL 0 9 Active cetirizine (ZyrTEC) 10 mg tabletIndicatio ns:Upper respiratory tract infection, unspecified type,Acute bronchitis, unspecified organism TAKE 1 TABLET BY MOUTH ONCE DAILY. 90 Tablet 1 9 Active montelukast (SINGULAIR) 5 mg Tablet, ChewableIndicat ions:Acute seasonal allergic rhinitis due to pollen CHEW AND SWALLOW 1 TABLET BY MOUTH ONCE DAILY. 90 Tablet 1 9 Active albuterol HFA 90 mcg inhalerIndicati ons:Acute seasonal allergic rhinitis due to pollen 2 puffs every 6 hours and before activitys. 13.4 Gram 2 8 Active ibuprofen (MOTRIN) 600 mg tablet Take 600 mg by mouth every 6 hours as needed for Pain, Mild. 8 Active EPINEPHrine (EPIPEN) 0.3 mg/0.3 mL Auto-Injector Inject 0.3 mL (0.3 mg) by intramuscular injection 1 time daily as needed for Anaphylaxis. 1 Package 0 8 Active Active Problems Problem Noted Date Diagnosed Date Perennial allergic rhinitis 11/21/2016 Environmental tobacco smoke exposure 11/10/2015 Immunizations Immunization Administration Dates Next Due (M-M-R II/PRIORIX)(12 MO UP) MEASLES, MUMPS AND RUBELLA VIRUS VACCINE, 0.5 ML IM/SUBCUT 05/11/2009,09/03/2004 (VARIVAX)(12 MOS UP)VARICELL A VIRUS VACCINE (PF) 0.5 ML, SUB CUT 12/02/2004 Dt Dtp Dtap Vaccine 12/02/2004, 4,02/24/2004,2003 HIB, Unspecified Formulation 12/02/2004, 04/28/2004,02/24/2004,2003 Hepatitis B Vaccine 04/28/2004,02/24/2004,2003 IPV/OPV 04/28/2004,02/24/2004,2003 Social History Tobacco Use Types Packs/Day Years Used Date Smoking Tobacco: Passive Smo ke Exposure - Never Smoker Smokeless Tobacco: Never Alcohol Use Standard Drinks/Week Comments No 0 (1 standard drink = 0.6 oz pur e alcohol) Adolescent Education Answer Date Record ed Getting School Help Needed Not on file 04/20 Comments Unknown Sex and Gender Information Value Date Recorded Sex Assigned at Not on file 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 Gender Identity Not on file Sexual Orientation Not on file Last Filed Vital Signs Vital Sign Reading Time Taken Comments Blood Pressure 124/74 10/02/2023 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 Pulse 80 01/02/2022 10:18 PM CDT Temperature 36.6 C (97.9 F) 01/02/2022 10:18 PM CDT Respiratory Rate 15 01/02/2022 10:18 PM CDT Oxygen Saturation 99% 01/02/2022 10:18 PM CDT Inhaled Oxygen Concentration - - Weight 90.7 kg (200 lb) 10/02/2023 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 Height 160 cm (5' 3 ) 10/02/2023 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
[2025-08-02 21:17] VITALS: BP 105/71; PULSE 74; RESP 16; TEMP 36.7; O2SAT 99; BMI 35.4
--- NOTE | 2025-08-02 21:20 | XRR_ITS ---
PROCEDURE INFORMATION: Exam: XR Left Foot Exam date and time: 08/02/2025 10:30 PM Age: 19 years old Clinical indication: C/O continued left foot pain after a fall two weeks ago. TECHNIQUE: Imaging protocol: Radiologic exam of the left foot. Views: 3 or more views. COMPARISON: No relevant prior studies available. FINDINGS: Bones/joints: No acute fracture or dislocation. Soft tissues: Normal. XR/XR foot LT min 3V* [id number] IMPRESSION: No acute fracture or dislocation.
[2025-08-02 22:51] VITALS: BP 124/65; PULSE 81; RESP 18; O2SAT 94
--- NOTE | 2025-08-02 23:20 | W.ED.EXTPRO ---
HPI - Extremity Problem General: Chief complaint: Extremity Injury, Lower Stated complaint: Fell about 2 wks ago hurt LT foot would like xray Time Seen by Provider: 08/02/25 22:32 History of Present Illness: Patient is a 19-year-old female who presents with persistent foot pain following a fall approximately 2 weeks ago. She reports pain primarily on the top of her foot with radiation to her ankle, knee, and hip, particularly with movement. The pain has not improved since the injury. Patient confirms swelling of the foot and tenderness to palpation. She describes falling backward onto her leg, injuring 'her whole leg.' Patient also mentions having neuropathy, which affects her ability to feel sensation in her legs. An x-ray was previously obtained at another facility. Related Data Previous Rx's ?Medication ?Instructions ?Recorded ondansetron 4 mg disintegrating 4 mg PO Q8H PRN nausea and 09/04/24 tablet vomiting #60 tabs rizatriptan 5 mg tablet See Rx Instructions PO .COMPLEX #9 12/04/24 tabs levocetirizine 5 mg tablet (Xyzal) 5 mg PO DAILY PRN allergy symptoms 03/27/25 #60 tabs escitalopram oxalate 20 mg tablet 20 mg PO DAILY #90 tabs 05/28/25 propranolol 20 mg tablet 20 mg PO BID #180 tabs 06/30/25 amoxicillin 500 mg tablet 500 mg PO TID #15 tabs 07/26/25 triamcinolone acetonide 55 mcg 2 spray intranasal DAILY #16.9 mL 07/26/25 nasal spray aerosol (Nasacort Allergy) indomethacin 50 mg capsule 50 mg PO TID PRN pain #14 caps 08/02/25 Allergies Allergy/AdvReac Type Severity Reaction Status Date / Time cephalexin (From Keflex) Allergy rash Verified 07/26/25 14:30 [facility] PFS: Medical History Migraine headache Incomplete miscarriage Environmental allergies Anxiety managed by PCP Chronic sinus infection Benign brain tumor Has Neurologist [place] [facility]. Asthma Surgical History Hx of brain surgery Mid brain tumor- benign; bypass. Has Neurologist at [facility]. Family History Grandmother Breast cancer maternal--unknown dx paternal-- dx in her 30's Diabetes paternal Father Diabetes Heart disease Hypertension Hyperchloremia Stroke Family/Other Diabetes paternal uncle Family history of thyroid problem maternal aunt maternal cousin Grandfather Heart disease maternal Brother Hypertension Hyperchloremia Denies family history of Colon cancer Ovarian cancer Uterine cancer Social History Smoking and tobacco/nicotine status: never used tobacco/nicotine Alcohol intake: never Substance/Drug Use: current Substance/Drug use frequency: few times a month Physical Exam Const: COMMON NORMALS: no acute distress GENERAL APPEARANCE: cooperative; not ill appearing and not frail appearing HENMT: COMMON NORMALS: normocephalic, atraumatic and Normal external nose present HEAD & SCALP: normocephalic and atraumatic FACE & SINUS: normal facial exam and face symmetric NOSE: Normal external nose present Eye: COMMON NORMALS: Equal, round and reactive pupils present and EOMs intact bilaterally PUPIL: Yes Equal, round and reactive pupils present Neck/C-Spine: GENERAL: Yes trachea midline Chest: CHEST: Yes Symmetrical chest wall rise Resp: COMMON NORMALS: normal respiratory effort, No retractions and No use of accessory muscles Cardio: COMMON NORMALS: regular rate and regular rhythm RATE: regular rate RHYTHM: regular rhythm Extremity: NARRATIVE EXTREMITY EXAM: RLE: tenderness along the midfoot, particularly medially. no swelling no deformity. knee has no effusion. no deformity. some medial patellar facet tenderness. no joint line tenderness. pain not laxity with valgus testing. Neuro: LUIS ENRIQUE COMA SCALE: document GCS findings Luis Enrique coma scale eye opening: Spontaneous [place] coma scale verbal response: Orientated [place] coma scale motor response: Obey commands Luis Enrique coma scale total score: 15 SENSORY EXAM: Yes extremities (intact) Psych: COMMON NORMALS: speech normal SPEECH: Yes normal speech Skin: COMMON NORMALS: no rashes or lesions noted GENERAL SKIN EXAM: no rashes or lesions noted Course Vital Signs: Vital signs: Vital Signs Temperature 98.1 F 08/02/25 21:17 Pulse Rate 81 08/02/25 22:51 Respiratory Rate 18 08/02/25 22:51 Blood Pressure 124/65 08/02/25 22:51 Pulse Oximetry 94 08/02/25 22:51 Oxygen Delivery Me thod Room Air 08/02/25 22:51 MDM - Extremity (Nontraumatic) Medical Decision Making X-rays were negative. She has no significant swelling. Likely contusion with some continued discomfort. No evidence of ligamentous instability or lisfranc injury. She is advised to wear a supportive lace up shoe, ice, she will be given NSAIDs. Outpatient follow up. She may require therapy for mechanics likely causing her knee and hip discomfort related to the foot. Stable for discharge. Lab Data Radiology Impressions Foot X-Ray 08/02/25 21:20 IMPRESSION: No acute fracture or dislocation. All radiology interpretation(s) finalized by discharge Discharge Plan Discharge Patient Disposition: Home Clinical Impression: Sprain of foot, left Qualifiers: Encounter type: initial encounter Qualified Code(s): S93.602A - Unspecified sprain of left foot, initial encounter Condition: Stable Prescriptions: New indomethacin 50 mg capsule 50 mg PO TID PRN (Reason: pain) Qty: 14 0RF Rx Instructions: administer with food or milk No Action ondansetron 4 mg tablet,disintegrating 4 mg PO Q8H PRN (Reason: nausea and vomiting) Qty: 60 1RF propranolol 20 mg tablet 20 mg PO BID Qty: 180 1RF rizatriptan 5 mg tablet See Rx Instructions PO .COMPLEX Qty: 9 3RF Rx Instructions: take 1 tablet at onset of headache; if no relief, may repeat 1 tablet after at least 2 hrs PO escitalopram oxalate 20 mg tablet 20 mg PO DAILY Qty: 90 1RF amoxicillin 500 mg tablet 500 mg PO TID Qty: 15 0RF triamcinolone acetonide [Nasacort Allergy] 55 mcg aerosol,spray 2 spray intranasal DAILY Qty: 16.9 0RF Rx Instructions: administer into each nostril levocetirizine [Xyzal] 5 mg tablet 5 mg PO DAILY PRN (Reason: allergy symptoms) Qty: 60 1RF Discharge Orders: Discharge ED (Routine); Ordered 08/02/25 Ordered By: Hernandez Pineda Referrals: Han Trinh MD [Primary Care Provider, Family Practice] - 4-7 days Patient Instructions: Foot Sprain (ED), Opioid Safety, Pain Management, Patient Portal & Luca Instructions Activity Restrictions/Additional Instructions: Wear supportive shoes. You are having pain in the knee because of a mechanical issue related to spraining your foot. This is called patellofemoral knee pain syndrome. Medication as directed. Ice for swelling. You may require some physical therapy for this. Follow-up with your doctor this coming week. Call Monday for appointment. Print Language: Kazakh Coding Level of Care Code ED Supervisor Malted Milk for Stefania Burris
== END 2025-08-02 23:39 | disposition home or self-care (01) ==
PROVIDERS: Emergency Provider Emergency Medicine; PCP Family Medicine
DX: S93.602A Unspecified sprain of left foot, initial encounter (principal); W19.XXXA Unspecified fall, initial encounter
CPT/HCPCS: 73630; 99283

== ENCOUNTER 2025-09-03 15:32 | Inpatient (IN) | payer SELFPAY ==
[2025-09-03] VITALS (18 sets, daily range): BP systolic 101–126; BP diastolic 49–82; PULSE 56–95; RESP 18–32; TEMP 36.9–37.1; O2SAT 85–95; BMI 33.6; BMI 35.2
--- NOTE | 2025-09-03 15:45 | XR_ITS ---
WS: [id number] Portable AP upright chest, 09/03/2025 Clinical Data: short of breath Comparison: Portable chest, 07/14/2020 Findings: No nodules, masses or effusions are seen. The heart is normal. The pulmonary vascularity is not increased. No pneumonia or pneumothorax is seen. Monitor leads are on the chest wall. XR/XR chest 1V portable [id number] Impression: Negative chest.
--- NOTE | 2025-09-03 15:45 | ECG_ITS ---
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 Measurements Intervals [place] Rate: 91 P: 81 ID: [id number] QRS: 86 QRSD: 74 T: 79 QT: 337 QTc: 416 Interpretive Statements SINUS RHYTHM WITH SINUS ARRHYTHMIA POSSIBLE RIGHT ATRIAL ENLARGEMENT [0.25mV P-WAVE] No previous ECG available for comparison Electronically Signed On 09-03-2025 21:42:14 PATROL DEPUTY SHERIFF by Vero Verma M.D. [email or web address]
--- NOTE | 2025-09-03 15:54 | ED_ITS ---
HPI - SOB/Dyspnea 2 General: Chief Complaint: Shortness of Breath/Dyspnea Stated Complaint: SOB Time Seen by Provider: 09/03/25 15:50 History of Present Illness: HPI Narrative: 20-year-old female presents emergency ro om complaining of productive cough that began last night with some chest pressure and shortness of breath no sharp chest pain. On presentation in the triage she is satting 85% on room air and she is tachypneic. She denies any hemoptysis no history of DVTs. No recent fever sweats or chills. No chest trauma she has no history of asthma. Associated symptoms: Reports chest congestion; Deny abdominal pain, chest pain or fever(s) Related Data Home Medications ?Medication ?Instructions ?Recorded ?Confirmed naproxen 500 mg tablet (Naprosyn) 500 mg PO BID PRN Pa in 09/04/25 09/04/25 Previous Rx's ?Medication ?Instructions ?Recorded rizatriptan 5 mg tablet See Rx Instructions PO .COMP ZOLTAN #9 12/04/24 tabs escitalopram oxalate 20 mg tablet 20 mg PO DAILY #90 t abs 05/28/25 propranolol 20 mg tablet 20 mg PO BID #180 tabs 06/30 triamcinolone acetonide 55 mcg 2 spray intranasal RIGO Y #16.9 mL 07/26/25 nasal spray aerosol (Nasacort Allergy) indomethacin 50 mg capsule 50 mg PO TID PRN pain #14 c aps 08/02/25 levocetirizine 5 mg tablet (Xyzal) 5 mg PO DAILY PRN a llergy symptoms 09/01/25 #60 tabs Allergies Allergy/AdvReac Type Severity Reaction Status Date / Time cephalexin (From Keflex) Allergy rash Verified 09/03/25 15:49 Review of Systems 2 Const: Denies: fever(s) or chills Card: Denies: chest pain Resp: Reports: dyspnea, productive cough, wheezing and chest congestion GI: Denies: abdominal pain : Denies: dysuria, urinary frequency or urinary urgency Musc: Denies: neck pain or back pain Skin/Breast: Denies: rash PFSH ED 2 PFSH: Medical History Asthma exacerbation Peripheral neuropathy Migraine headache Incomplete miscarriage Environmental allergies Anxiety managed by PCP Chronic sinus infection Benign brain tumor Has Neurologist at [facility]. Asthma Surgical History Hx of brain surgery Mid brain tumor- benign; bypass. Has Neurologist at [facility]. Family History Grandmother Breast cancer maternal--unknown dx paternal-- dx in her 30's Diabetes paternal Father Diabetes Heart disease Hypertension Hyperchloremia Stroke Family/Other Diabetes paternal uncle Family history of thyroid problem maternal aunt maternal cousin Grandfather Heart disease maternal Brother Hypertension Hyperchloremia Denies family history of Colon cancer Ovarian cancer Uterine cancer Social History Smoking and tobacco/nicotine status: never used tobacco/nicotine Alcohol intake: never Substance/Drug Use: current Substance/Drug use frequency: few times a month Substance/Drug use type: Marijuana Household members: spouse Marital status: Physical Exam 2 Const: GENERAL APPEARANCE: cooperative ORIENTATION/CONSCIOUSNESS: Yes awake, Yes oriented to person, Yes oriented to place and Yes oriented to time HENMT: COMMON NORMALS: normocephalic, atraumatic and hearing grossly normal bilaterally HEAD & SCALP: normocephalic and atraumatic Resp: COMMON NORMALS: normal respiratory effort, No retractions and No use of accessory muscles AUSCULTATION: wheezes and diminished lung sounds Cardio: COMMON NORMALS: regular rate, regular rhythm and No murmurs present (Cardio) RATE: regular rate RHYTHM: regular rhythm GI: COMMON NORMALS: Soft to palpation and No hepatosplenomegaly present A USCULTATION: Yes normoactive bowel sounds PALPATION: Yes Soft to palpation, No Tenderness to palpation present (GI), No Guarding due to palpation present (GI) and Yes No hepatosplenomegaly present Extremity: COMMON NORMALS: normal to inspection, capillary refill normal, no clubbing, cyanosis or edema, no calf tenderness and no pedal edema Neuro: SENSORIUM/ORIENTATION: Yes oriented to person, Yes oriented to place and Yes oriented to time Skin: COMMON NORMALS: no rashes or lesions noted GENERAL SKIN EXAM: no rashes or lesions noted Course 2 Vital Signs: Vital signs: Vital Signs Temperature 97.7 F 09/06/25 07:56 Pulse Rate 57 L 09/06/25 07:56 Respiratory Rate 15 09/06/25 07:56 Blood Pressure 112/68 09/06/25 07:56 Pulse Oximetry 91 09/06/25 07:56 Oxygen Delivery Me thod Room Air 09/06/25 07:56 Oxygen Flow Rate 1 09/05/25 07:57 MDM - SOB/Dyspnea Medical Decision Making Medical decision making Social determinants: None I reviewed the patient's medical record. I reviewed the patient's current home meds. Alternate historians: None Differential diagnosis: Pneumonia, viral upper respiratory infection, asthma exacerbation Lab Review: Laboratory test show white count 11.7 hemoglobin 12 hematocrit 41.2. CMP sodium slightly elevated at 146. Urine shows contamination no sign of infection. Imaging: Chest x-ray no acute infiltrate Assessment of risk Level of risk: Moderate to high Hospitalization considerations: Patient requiring oxygen significant wheezing will require hospitalization Reexamination: Improved after nebulizers but still requiring oxygen Assessment and plan: Admit for exacerbation asthma no sign of pneumonia. White count normal. IV fluids given started on steroids aggressive pulmonary toilet. Discussed with hospitalist consult pulmonology orders written for medical floor Lab Data 09/06/25 04:54 09/06/25 04:54 Labs/Radiology: Radiology Impressions Chest X-Ray 09/03/25 15:45 Impression: Negative chest. Laboratory Results WBC 18.46 10^3/uL (3.29-11.43) H 09/03/25 16:04 RBC 4.56 10^6/uL (3.85-5.65) 09/03/25 16:04 Hgb 13.40 g/dL (11.27-16.99) 09/03/25 16:04 Hct 41.0 % (36-47) 09/03/25 16:04 MCV 89.9 fl (85-98) 09/03/25 16:04 MCH 29.4 pg (27-33) 09/03/25 16:04 MCHC 32.7 g/dL (30-55) 09/03/25 16:04 RDW 13.8 % (12.1-15.1) 09/03/25 16:04 Plt Count 289 10^3/cmm (157-399) 09/03/25 16:04 MPV 11.8 fL (7.4-10.4) H 09/03/25 16:04 Neut % (Auto) 81.4 % 09/03/25 16:04 Lymph % (Auto) 7.7 % 09/03/25 16:04 [place] % (Auto) 5.3 % 09/03/25 16:04 Eos % (Auto) 4.7 % 09/03/25 16:04 Baso % (Auto) 0.5 % 09/03/25 16:04 Neut # (Auto) 15.02 10^3/uL (1.8-7.7) H 09/03/25 16:04 Lymph # (Auto) 1.4 10^3/uL (0.8-4.8) 09/03/25 16:04 [place] # (Auto) 1.0 10^3/uL (0.2-0.9) H 09/03/25 16:04 Eos # (Auto) 0.9 10^3/uL (0.0-0.8) H 09/03/25 16:04 Baso # (Auto) 0.1 10^3/uL (0.0-0.1) 09/03/25 16:04 Nucleated RBC % (auto) 0 % 09/03/25 16:04 Nucleated RBCs # 0.0 /100WBC 09/03/25 16:04 D-Dimer 0.39 ug/mLFEU (0-0.59) 09/03/25 16:04 Specimen Type Arterial 09/03/25 15:50 Sample Site Radial, right 09/03/25 15:50 ABG pH 7.43 (7.35-7.45) 09/03/25 15:50 ABG pCO2 34.5 mmHg (35-45) L 09/03/25 15:50 ABG pO2 57.1 mmHg (80.0-100.0) L 09/03/25 15:50 ABG HCO3 22.6 mmol/L (22-26) 09/03/25 15:50 ABG O2 Saturation 90.9 09/03/25 15:50 ABG Base Excess -1.2 mmol/L (-2.0-2.0) 09/03/25 15:50 Nehemiah Test Pos 09/03/25 15:50 A-a O2 Gradient 6.4 mmHg (5-10) 09/03/25 15:50 Hematocrit 41.6 % (37-47) 09/03/25 15:50 Hgb O2 Saturation 89.9 % (95-100) L 09/03/25 15:50 Carboxyhemoglobin 1.2 %THgb (0.4-20.1) 09/03/25 15:50 Methemoglobin 0.0 % (0.4-1.5) L 09/03/25 15:50 Total Hemoglobin 13.6 g/dL (12-16) 09/03/25 15:50 Sodium 141.0 mmol/L (131-143) 09/03/25 15:50 Potassium 4.0 mmol/L (3.5-5.0) 09/03/25 15:50 Glucose 100.0 mg/dL (70-115) 09/03/25 15:50 Ionized Calcium 1.2 mmol/L (1.1-1.4) 09/03/25 15:50 O2 Delivery Device Nc 09/03/25 15:50 O2 Liters/Min 2.0 % 09/03/25 15:50 Soccer Ball Assembler ID [place] 09/03/25 15:50 Sodium 138 mmol/L (136-145) 09/03/25 16:04 Potassium 4.1 mmol/L (3.5-5.1) 09/03/25 16:04 Chloride 106 mmol/L (98-107) 09/03/25 16:04 Carbon Dioxide 21 mmol/L (22-29) L 09/03/25 16:04 Anion Gap 15.1 (5-19) 09/03/25 16:04 BUN 9 mg/dL (6-20) 09/03/25 16:04 Creatinine 0.7 mg/dL (0.5-0.9) 09/03/25 16:04 GFR Calculation 104.6 mL/min (90-130) 09/03/25 16:04 Glucose 107 mg/dL (65-115) 09/03/25 16:04 Calculated Osmolality 285 mOsm/kg (285-295) 09/03/25 16:04 Lactic Acid 0.6 mmol/L (0.5-2.2) 09/03/25 16:04 Calcium 9.0 mg/dL (8.5-10.5) 09/03/25 16:04 Total Bilirubin 0.7 mg/dL (0.15-1.2) 09/03/25 16:04 AST 14 U/L (0-32) 09/03/25 16:04 ALT 11 U/L (0-33) 09/03/25 16:04 Alkaline Phosphatase 94 U/L (35-105) 09/03/25 16:04 Total Protein 7.3 g/dL (6.6-8.7) 09/03/25 16:04 Albumin 4.0 g/dL (3.5-5.2) 09/03/25 16:04 Globulin 3.3 g/dL (1.3-4.6) 09/03/25 16:04 Adenovirus (PCR) Not detected (NOT DETECT) 09/03/25 16:04 C. pneumoniae DNA (PCR) Not detected (NOT DETECT) 09/03/25 16:04 Coronavirus 229E (PCR) Not detected (NOT DETECT) 09/03/25 16:04 Human Metapneumovir PCR Not detected (NOT DETECT) 09/03/25 16:04 Influenza A (H1) PCR Not detected (NOT DETECT) 09/03/25 16:04 Influenza A (PCR) Negative (Negative) 09/03/25 16:04 Influ A (H1/09) PCR Not detected (NOT DETECT) 09/03/25 16:04 Influenza A (H3) PCR Not detected (NOT DETECT) 09/03/25 16:04 Influenza Type A (PCR) Not detected (NOT DETECT) 09/03/25 16:04 Influenza Type B (PCR) Negative (Negative) 09/03/25 16:04 Influenza Type B (PCR) Not detected (NOT DETECT) 09/03/25 16:04 M. pneumoniae (PCR) Not detected (NOT DETECT) 09/03/25 16:04 Parainfluenza 1 (PCR) Not detected (NOT DETECT) 09/03/25 16:04 Parainfluenza 2 (PCR) Not detected (NOT DETECT) 09/03/25 16:04 Parainfluenza 3 (PCR) Not detected (NOT DETECT) 09/03/25 16:04 Parainfluenza 4 (PCR) Not detected (NOT DETECT) 09/03/25 16:04 RSV (PCR) Negative (Negative) 09/03/25 16:04 RSV Type A (PCR) Not detected (NOT DETECT) 09/03/25 16:04 RSV Type B (PCR) Not detected (NOT DETECT) 09/03/25 16:04 Entero/Rhino (PCR) Detected (NOT DETECT) A 09/03/25 16:04 SARS-CoV-2 (PCR) Negative (Negative) 09/03/25 16:04 SARS-CoV-2 (PCR) Not detected (NOT DETECT) 09/03/25 16:04 All radiology interpretation(s) finalized by discharge EKG Data EKG 1: I personally reviewed and interpreted this EKG as follows: Interpretation: EKG 09/03/2025 1545 sinus rhythm rate of 91 NC interval 164 QTc [address] changes noted. no EKG available for comparison Discharge Plan Discharge Patient Disposition: Admitted As Inpatient Admit Provider: Donell Viveros Clinical Impression: Acute respiratory failure with hypoxia, Asthma exacerbation Condition: Stable Coding Level of Care Code ED Rate Setter for Stefania Burris
[2025-09-03 16:02] LABS: ABG PCO2 34.5 mmHg (35-45); ABG PH Result 7.43 (7.35-7.45); Alveolar-Arterial Oxygen Gradi 6.4 mmHg (5-10); Arterial Blood Gas Hematocrit 41.6 % (37-47); Blood Gas Allen Test Pos; Blood Gas LPM 2.0 %; Blood Gas Operator Identificat WALCI; Blood Gas Sample Site Radial, right; Blood Gas Sample Type Arterial; Carboxyhemoglobin 1.2 %THgb (0.4-20.1); Glucose Level-ABG 100.0 mg/dL (70-115); HCO3 ABG 22.6 mmol/L (22-26); Ionized Calcium Level - ABG 1.2 mmol/L (1.1-1.4); Methemoglobin 0.0 % (0.4-1.5); Oxygen Saturation ABG 90.9; PO2 ABG 57.1 mmHg (80.0-100.0); Potassium Level - ABG 4.0 mmol/L (3.5-5.0); Sodium Level - ABG 141.0 mmol/L (131-143)
[2025-09-03] MEDS: methylPREDNISolone sod succ 125 mg/2 mL INJ IVP (16:07)
[2025-09-03 16:40] LABS: Hematocrit 41.0 % (36-47); Hemoglobin 13.40 g/dL (11.27-16.99); Mean Corpuscular HGB Conc 32.7 g/dL (30-55); Mean Corpuscular Hemoglobin 29.4 pg (27-33); Mean Corpuscular Volume 89.9 fl (85-98); Nucleated Red Blood Cells % 0 %; Platelet Count 289 10^3/cmm (157-399); Red Blood Count 4.56 10^6/uL (3.85-5.65); White Blood Count 18.46 10^3/uL (3.29-11.43)
[2025-09-03 16:49] LABS: Alanine Aminotransferase 11 U/L (0-33); Albumin Level 4.0 g/dL (3.5-5.2); Alkaline Phosphatase 94 U/L (35-105); Anion Gap 15.1 (5-19); Aspartate Amino Transferase 14 U/L (0-32); Blood Urea Nitrogen 9 mg/dL (6-20); Calcium 9.0 mg/dL (8.5-10.5); Carbon Dioxide 21 mmol/L (22-29); Chloride 106 mmol/L (98-107); Globulin 3.3 g/dL (1.3-4.6); Glucose 107 mg/dL (65-115); Lactic Sepsis W/Reflex 0.6 mmol/L (0.5-2.2); Osmolality Calculated 285 mOsm/kg (285-295); Potassium 4.1 mmol/L (3.5-5.1); Sodium 138 mmol/L (136-145); Total Protein 7.3 g/dL (6.6-8.7)
[2025-09-03 16:52] LABS: Respiratory Syncytial Virus Ce NEGATIVE (Negative); SARS-CoV-2 PCR NEGATIVE (Negative)
[2025-09-03] MEDS: levofloxacin-dextrose 5 % 750 MG/150 ML PREMIX 100 MG IV (16:56)
--- NOTE | 2025-09-03 17:26 | P.HP_ITS ---
Providers/Chief Complaint 2 Primary Care Provider: Han Trinh MD Chief Complaint: SOB History of Present Illness Juli Gonzalez is a 20 year old female with a history of migraines, environmental allergies, chronic sinus infection, benign brain tumor, and childhood asthma (no issues since adolescence), presents with sudden onset shortness of breath beginning last night, accompanied by productive cough with occasional yellow sputum and chest pressure. Denies fever, hemoptysis, and history of deep vein thrombosis. Reports dizziness with walking recently, nearly syncope, which may coincide with low oxygen levels. Vomited this morning; has watery diarrhea for approximately 1.5 months occurring multiple times daily, often after eating, without blood. Denies dysuria and rashes. Does not smoke tobacco, denies vaping, smokes marijuana, and denies alcohol use. Not previously on home oxygen. Emergency department course: On arrival, oxygen saturation was 85% on room air; started on supplemental oxygen with saturation increasing to 92%. Initial respiratory rate was 32, improving to 20?21. Blood pressure 101/66, temperature 98.4, heart rate 77. Laboratory studies showed white blood cell count 18.46, hemoglobin 13.4, platelets 289, neutrophils 15, monocytes 1, eosinophils 0.9. D- dimer 0.39 (not elevated). Arterial blood gas on 2 L nasal cannula: pH 7.43, CO2 34.5, PO2 57.1. Chemistry panel unremarkable. Nasal swabs for influenza, RSV, and COVID were negative. Chest X-ray was unremarkable. Received Solu-Medrol 125 mg IV and 2 g magnesium. Initially admitted to intensive care unit for closer monitoring. Pulmonology consultation requested (Dr. Lozada). Plans discussed included continued IV corticosteroids, breathing treatments, possible inhaled steroids, respiratory therapy consultation, following viral study results, sputum culture collection, MRSA PCR, urine bacterial antigens, holding NSAIDs, Mucinex flutter valve, and providing antibiotic coverage for productive cough. Monitoring of oxygen requirements with consideration for home oxygen if needed. Review of Systems 2 Const: Denies: fever(s), chills, body aches or malaise ENMT: Denies: throat pain Card: Denies: chest pain, edema, pre-syncope or dyspnea on exertion Resp: Reports: dyspnea, productive cough and wheezing; Denies: change in phlegm color or hemoptysis GI: Reports: nausea and vomiting; Denies: abdominal pain, diarrhea, constipation, hematochezia or melena : Denies: flank pain, urinary frequency or hematuria Musc: Denies: back pain, joint swelling or joint redness Skin/Breast: Denies: rash or new lesions Neuro: Denies: headache(s) or confusion Medications/Allergies Home Medications ?Medication ?Instructions ?Recorded ?Confirmed ?Last Taken ?Type ondansetron 4 mg disintegrating 4 mg PO Q8H PRN nausea and 09/04/24 07/26/25 Unknown Rx tablet vomiting #60 tabs rizatriptan 5 mg tablet See Rx Instructions PO .COMP ZOLTAN #9 12/04/24 07/26/25 Unknown Rx tabs escitalopram oxalate 20 mg tablet 20 mg PO DAILY #90 t abs 05/28/25 07/26/25 Unknown Rx propranolol 20 mg tablet 20 mg PO BID #180 tabs 06/3007/26/25 Unknown Rx amoxicillin 500 mg tablet 500 mg PO TID #15 tabs 07/2607/26/25 Unknown Rx triamcinolone acetonide 55 mcg 2 spray intranasal RIGO Y #16.9 mL 07/26/25 07/26/25 Unknown Rx nasal spray aerosol (Nasacort Allergy) indomethacin 50 mg capsule 50 mg PO TID PRN pain #14 c aps 08/02/25 Unknown Rx levocetirizine 5 mg tablet (Xyzal) 5 mg PO DAILY PRN a llergy symptoms 09/01/25 Unknown Rx #60 tabs Allergies Allergy/AdvReac Type Severity Reaction Status Date / Time cephalexin (From [employer]) Allergy rash Verified 09/03/25 15:49 PFSH Acute 2 PFSH: Medical History Migraine headache Incomplete miscarriage Environmental allergies Anxiety managed by PCP Chronic sinus infection Benign brain tumor Has Neurologist at [facility]. Asthma Surgical History Hx of brain surgery Mid brain tumor- benign; bypass. Has Neurologist at [facility]. Family History Grandmother Breast cancer maternal--unknown dx paternal-- dx in her 30's Diabetes paternal Father Diabetes Heart disease Hypertension Hyperchloremia Stroke Family/Other Diabetes paternal uncle Family history of thyroid problem maternal aunt maternal cousin Grandfather Heart disease maternal Brother Hypertension Hyperchloremia Denies family history of Colon cancer Ovarian cancer Uterine cancer Social History (Updated 09/03/25 @ 17:38 by Donell Viveros MD) Smoking and tobacco/nicotine status: never used tobacco/nicotine Alcohol intake: never Substance/Drug Use: current Substance/Drug use frequency: few times a month Substance/Drug use type: Marijuana Household members: spouse Marital status: Vitals/I&O/Wt Last Vital Signs Temp 98.4 F 09/03/25 15:42 Pulse 77 09/03/25 17:03 Resp 20 H 09/03/25 16:08 BP 107/80 09/03/25 17:03 Pulse Ox 95 09/03/25 17:03 O2 Del Method Nasal Cannula 09/03/25 16:08 O2 Flow Rate 2 09/03/25 16:08 Weight last 48 hrs Weight 86.183 kg Physical Exam 2 Narrative: Accompanied by her . Const: COMMON NORMALS: patient oriented x3 and alert GENERAL APPEARANCE: c ooperative ORIENTATION/CONSCIOUSNESS: Yes awake HENMT: COMMON NORMALS: oropharynx normal Neck/C-Spine: COMMON NORMALS: no JVD Resp: AUSCULTATION: wheezes (Mild wheeze) and diminished lung sounds Cardio: COMMON NORMALS: no JVD, regular rhythm, S1 normal heart sound present, S2 normal heart sound present and No murmurs present (Cardio) RHYTHM: regular rhythm HEART SOUNDS: S1 normal heart sound present and S2 normal heart sound present GI: COMMON NORMALS: Normal to inspection, nondistended, normoactive bowel sounds present, Soft to palpation and non-tender PALPATION: Yes Soft to palpation Extremity: COMMON NORMALS: no joint enlargement and no pedal edema Neuro: COMMON NORMALS: patient oriented x3 and moves all extremities S ENSORIUM/ORIENTATION: Yes alert Skin: COMMON NORMALS: no rashes or lesions noted GENERAL SKIN EXAM: no rashes or lesions noted Data 09/03/25 16:04 09/03/25 16:04 Micro: Microbiology 09/03/25 16:49 Blood Culture - Preliminary Blood SPECIMEN COLLECTED 09/03/25 16:47 Blood Culture - Preliminary Blood SPECIMEN COLLECTED A&P Assessment and plan 1. Acute respiratory failure with hypoxia: Severe asthma exacerbation : Acute onset dyspnea with wheezing, tachypnea, and hypoxia; ABG showed mild respiratory alkalosis (pH 7.43, CO2 34.5) with hypoxemia (PO2 57.1) on 2 L nasal cannula. Viral testing negative; chest X-ray unremarkable. Minimal eosinophilia. - Continue IV corticosteroid therapy. Continue Solu-Medrol. Monitor for risk of hyperglycemia, hypertension, gastritis, encephalopathy. - Administer breathing treatments - Inhaled corticosteroids - Initiate respiratory therapy consultation with oxygen therapy - Pulmonology consultation (Dr. Lozada) - Admit to intensive care unit for close monitoring with plan to transfer out if improving - Start supplemental oxygen; monitor oxygen requirements; consider home oxygen if needed - Obtain MRSA PCR - Obtain urine bacterial antigens - Collect sputum culture - Hold any NSAIDs (in case contributing to eosinophilia) - Provide antibiotic coverage due to productive cough - Administered magnesium 2 g in ED Acute bronchitis : Productive cough with yellow sputum; chest X-ray unremarkable; elevated WBC with neutrophilia. - Provide antibiotic coverage due to productive cough - Collect sputum culture - Mucinex flutter valve Hypoxia : O2 saturation 85% on room air on arrival; improved to 92% with supplemental oxygen. D-dimer not elevated. Low probability PE - Start and titrate supplemental oxygen - Monitor oxygen saturation and clinical status - Assess for need for home oxygen upon improvement Plan: Productive cough : Cough productive of sputum, occasionally yellow; chest X-ray unremarkable. - Provide antibiotic coverage - Collect sputum culture - Mucinex flutter valve Leukocytosis : WBC 18.46 with neutrophilia; chemistry otherwise unremarkable; D- dimer not elevated. - Provide antibiotic coverage due to suspected bronchitis - Follow culture results (sputum; MRSA PCR; urine bacterial antigens) Chest pressure : Non-sharp chest pressure; no hemoptysis; D-dimer not elevated; chest X-ray unremarkable. EKG with sinus rhythm. Some T wave flattening in aVL and V2. Diarrhea (1.5 months) : Watery diarrhea multiple times daily for approximately 1.5 months, often after eating; no blood in stool reported. With mild eosinophilia. Collect ova and parasites. Collect C. difficile. Dizziness : Recent episodes with walking, nearly syncope; may be related to hypoxia. Vomiting (this morning) : Single episode reported this morning; onset of shortness of breath preceded vomiting. Benign brain tumor : Previously followed at [facility]; last follow-up approximately two years ago; currently reports dizziness and neuropathy. - Recommend follow-up with prior neurologist at [facility] Environmental allergies : Known history; no recent increase in allergic symptoms reported. Chronic sinus infection : Historical; no acute sinus symptoms reported currently. Requested to confirm home medications. PDMP PDMP Reviewed: Not Reviewed Attestations 2 Medical Necessity Statement*: Admission over to medicine dissipated for assessment of management of acute respiratory failure with hypoxia, severe asthma exacerbation, acute bronchitis as above. Coding Level of Care Code Critical Care >/= 30 minutes Critical care time (in minutes): 35 The high probability of a clinically significant, sudden or life threatening deterioration, as referenced in this documentation, required my full and direct attention, intervention and personal management. The critical care time shown is in addition to time spent performing any reported separately billable procedures and includes the following: [x] Data and vital sign review and interpretation [x ] Patient assessment, examination and intervention [x] Medication orders and management [x] Patient/Family updates as able [x] Care Coordination and Documentation. Diagnoses Acute respiratory failure with hypoxia J96.01
[2025-09-03] MEDS: ondansetron 2 mg/ML SDV 2 mL 4 MG IVP (18:10)
--- NOTE | 2025-09-03 19:42 | PC.NURSE ---
Patient arrived to ICU-2 at 1925. A&Ox4. Patient ambulated with standby assist to toilet. Oriented to room, at bedside.
[2025-09-03] MEDS: pantoprazole 40 mg SDV IVP (21:23)
[2025-09-03] MEDS: methylPREDNISolone sod succ 40 mg/mL INJ IVP (21:23)
[2025-09-03] MEDS: magnesium sulfate premix 2 GM/50 ML PIGGYBACK IV (21:24)
--- NOTE | 2025-09-03 21:43 | P.CONIM_ITS ---
Providers/Reason For Consult 2 Consulting Physician/Specialty*: Dr Edward Lozada Reason for Consult*: Asthma exacerbation Attending Physician: Donell Viveros Primary Care Provider: Han Trinh MD History of Present Illness History of Present Illness Juli Gonzalez is a 20 year old female with past medical history of asthma gets admitted here after having sudden onset of shortness of breath wheezing and cough subsides today. Denies any sick exposures. Had asthma when she was 10 years of age and had been off of inhalers since then. In ER she was treated with DuoNebs given Solu-Medrol. Started on oxygen after she was found to be hypoxic and tachycardic. Currently on 2 L nasal cannula tolerating well. ABG shows a pH of 7.43/pCO2 of 34.5 PaO2 57.1. Does smoke marijuana but denies cigarette smoke or vaping. Medications/Allergies Home Medications ?Medication ?Instructions ?Recorded ?Confirmed ?Last Taken ?Type ondansetron 4 mg disintegrating 4 mg PO Q8H PRN nausea and 09/04/24 07/26/25 Unknown Rx tablet vomiting #60 tabs rizatriptan 5 mg tablet See Rx Instructions PO .COMP ZOLTAN #9 12/04/24 07/26/25 Unknown Rx tabs escitalopram oxalate 20 mg tablet 20 mg PO DAILY #90 t abs 05/28/25 07/26/25 Unknown Rx propranolol 20 mg tablet 20 mg PO BID #180 tabs 06/3007/26/25 Unknown Rx amoxicillin 500 mg tablet 500 mg PO TID #15 tabs 07/2607/26/25 Unknown Rx triamcinolone acetonide 55 mcg 2 spray intranasal RIGO Y #16.9 mL 07/26/25 07/26/25 Unknown Rx nasal spray aerosol (Nasacort Allergy) indomethacin 50 mg capsule 50 mg PO TID PRN pain #14 c aps 08/02/25 Unknown Rx levocetirizine 5 mg tablet (Xyzal) 5 mg PO DAILY PRN a llergy symptoms 09/01/25 Unknown Rx #60 tabs Allergies Allergy/AdvReac Type Severity Reaction Status Date / Time cephalexin (From [employer]) Allergy rash Verified 09/03/25 15:49 Current Medications Generic Name Dose Route Start Last Admin Trade Name Freq PRN Reason Stop Dose Admin Albuterol/Ipratropium 3 ml 09/03/25 20:00 09/03/25 20:28 Ipratropium-Albuterol 3 Ml Neb INHALATION 3 ml Q4H.RESPIRATORY LIEN Administration Enoxaparin Sodium 40 mg 09/03/25 19:40 09/03/25 21:23 Enoxaparin 40 Mg/0.4 Ml Syringe SUBCUT 40 mg Q24H LIEN Administration Sodium Chloride 1,000 mls @ 100 mls/hr 09/03/25 19:40 09/03/25 21:24 Sodium Chloride 0.9% IV 100 mls/hr .Q10H LIEN Administration Methylprednisolone Sodium Succinate 40 mg 09/03/25 19:40 09/03/25 21:23 Methylprednisolone Sod Succ 40 Mg/Ml Inj IVP 40 mg Q6H LIEN Administration Pantoprazole Sodium 40 mg 09/03/25 19:40 09/03/25 21:23 Pantoprazole 40 Mg Sdv IVP 40 mg Q24H LIEN Administration PFSH Acute 2 PFSH: Medical History (Updated 09/03/25 @ 21:45 by Edward Lozada MD) Asthma exacerbation Peripheral neuropathy Migraine headache Incomplete miscarriage Environmental allergies Anxiety managed by PCP Chronic sinus infection Benign brain tumor Has Neurologist at [facility]. Asthma Surgical History Hx of brain surgery Mid brain tumor- benign; bypass. Has Neurologist at [facility]. Family History Grandmother Breast cancer maternal--unknown dx paternal-- dx in her 30's Diabetes paternal Father Diabetes Heart disease Hypertension Hyperchloremia Stroke Family/Other Diabetes paternal uncle Family history of thyroid problem maternal aunt maternal cousin Grandfather Heart disease maternal Brother Hypertension Hyperchloremia Denies family history of Colon cancer Ovarian cancer Uterine cancer Social History (Updated 09/03/25 @ 17:38 by Donell Viveros MD) Smoking and tobacco/nicotine status: never used tobacco/nicotine Alcohol intake: never Substance/Drug Use: current Substance/Drug use frequency: few times a month Substance/Drug use type: Marijuana Household members: spouse Marital status: Female Reproductive History: Date of last menstrual period: 08/24/25 Vitals/I&O/Wt Last Vital Signs Temp 98.8 F 09/03/25 19:47 Pulse 60 09/03/25 20:32 Resp 18 09/03/25 20:32 BP 122/68 09/03/25 20:00 Pulse Ox 95 09/03/25 20:32 O2 Del Method Nasal Cannula 09/03/25 20:32 O2 Flow Rate 2 09/03/25 20:32 09/03/25 09/03/25 09/03/25 06:59 14:59 22:59 Intake Total 1150 / 1150 Balance 1150 / 1150 Weight last 48 hrs Weight 198 lb 13.711 oz Weight 190 lb Physical Exam 2 Narrative: Per RN General: alert, NAD HEENT: EOMI Pulmonary: Wheezing bilaterally bilaterally Cardiovascular: rrr, nl s1s2, Abdomen: soft, nt, nd, no r/g, Extremities: no edema Neurologic: grossly intact Agree with above exam Data 09/03/25 16:04 09/03/25 16:04 Micro: Microbiology 09/03/25 16:49 Blood Culture - Preliminary Blood SPECIMEN COLLECTED 09/03/25 16:47 Blood Culture - Preliminary Blood SPECIMEN COLLECTED A&P Assessment and plan 1. Acute respiratory failure with hypoxia: 2. Asthma exacerbation: Plan: # Acute asthma exacerbation-patient's ABG confirms impending respiratory failure. Patient is currently tachycardic tachypneic, hypoxic and mildly hypercapnic. I will start her on ipratropium nebulizers along with albuterol. Solu-Medrol 125 every 8 Will also start Brovana Pulmicort nebulizers High risk for respiratory compromise and failure with need for intubation. 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 she was previously on it but quit many years ago # Obesity Thank you the consult Medical decision making level-high high MDM includes number and complexity of problems actively addressed during encounter, amount and/or complexity of data reviewed/ordered [ previous or external records, resulted lab(s)/test(s), ordered lab(s)/test(s), independent historian, independent test interpretation and other healthcare professional discussion] and described risk of complication, morbidity or mortality of management as documented This documentation was created by [employer] clothing and textiles teacher software (known for inherent clothing and textiles teacher error). Every effort was made to assure accuracy of clothing and textiles teacher. Any obvious errors or omissions should be clarified with the author of the document PDMP PDMP Reviewed: Not Reviewed Coding Level of Care Code 52663 Diagnoses Acute respiratory failure with hypoxia J96.01 Asthma exacerbation J45.901
[2025-09-03 22:38] LABS: MRSA PCR OZH (swab) NOT DETECTED (Not Detecte)
[2025-09-03 22:50] LABS: Coronavirus 229E,HKU1,NL63,OC4 Not Detected (NOT DETECT); Parainfluenza Virus Type 1 Not Detected (NOT DETECT); Parainfluenza Virus Type 2 Not Detected (NOT DETECT); Parainfluenza Virus Type 3 Not Detected (NOT DETECT); Parainfluenza Virus Type 4 Not Detected (NOT DETECT); SARS-COV-2 Not Detected (NOT DETECT)
[2025-09-04] VITALS (66 sets, daily range): BP systolic 93–150; BP diastolic 43–85; PULSE 62–157; RESP 14–31; TEMP 36.9–37.3; O2SAT 90–99; BMI 35.2
[2025-09-04] MEDS: methylPREDNISolone sod succ 40 mg/mL INJ IVP ×2 (01:20→07:33)
[2025-09-04 04:13] LABS: Hematocrit 42.6 % (36-47); Hemoglobin 12.80 g/dL (11.27-16.99); Mean Corpuscular HGB Conc 30.0 g/dL (30-55); Mean Corpuscular Hemoglobin 28.7 pg (27-33); Mean Corpuscular Volume 95.5 fl (85-98); Nucleated Red Blood Cells % 0 %; Platelet Count 217 10^3/cmm (157-399); Red Blood Count 4.46 10^6/uL (3.85-5.65); White Blood Count 11.03 10^3/uL (3.29-11.43)
--- NOTE | 2025-09-04 04:22 | PC.NURSE ---
Patient has had hat in toilet but missed it each time she has voided. Will continue to attempt to collect urine sample prior to shift change.
[2025-09-04 04:44] LABS: Blood Urea Nitrogen 7 mg/dL (6-20); Calcium 9.0 mg/dL (8.5-10.5); Carbon Dioxide 19 mmol/L (22-29); Chloride 106 mmol/L (98-107); Glucose 124 mg/dL (65-115); Magnesium 2.3 mg/dL (1.7-2.3); Osmolality Calculated 285 mOsm/kg (285-295); Sodium 138 mmol/L (136-145)
[2025-09-04 04:47] LABS: Anion Gap 17.1 (5-19); Potassium 4.1 mmol/L (3.5-5.1)
[2025-09-04] MEDS: ARFORMOTEROL 15 MCG/2 ML NEB INHALATION (08:25)
--- NOTE | 2025-09-04 09:18 | PC.PHAR ---
Verified pts'[ medications with Dion at [facility].
[2025-09-04] MEDS: methylPREDNISolone sod succ 125 mg/2 mL INJ 60 MG IVP ×2 (13:30→21:26)
[2025-09-04] MEDS: magnesium sulfate premix 2 GM/50 ML PIGGYBACK IV (13:31)
[2025-09-04 13:40] LABS: Glucose Urine UA Negative (Normal); Nitrate Urine Negative (Negative); Specific Gravity, Urine 1.019 (1.005-1.030)
[2025-09-04 13:48] LABS: Add Urine Microscopic? YES
--- NOTE | 2025-09-04 13:51 | ECG_ITS ---
[employer] Test Date: 2025-09-04 Pat Name: Juli Gonzalez Department: Room: [id number] Gender: Female [employer]: : 2005 Requested By: Donell Viveros Order Number: [id number] Reading MD: ROGELIO YATES Measurements Intervals [place] Rate: 131 P: 64 SC: 150 QRS: 43 QRSD: 86 T: 46 QT: 333 QTc: 492 Interpretive Statements SINUS TACHYCARDIA NONSPECIFIC ST & T-WAVE ABNORMALITY ABNORMAL RHYTHM ECG Compared to ECG 09/03/2025 15:45:22 T-wave abnormality now present Sinus rhythm no longer present Sinus arrhythmia no longer present Electronically Signed On 09-10-2025 20:24:51 PROJECTION CAMERA OPERATOR by ROGELIO YATES [email or web address]
[2025-09-04] MEDS: LORazepam 2 mg/mL INJ 1 mL 0.5 MG IVP (14:14)
[2025-09-04 14:26] LABS: ABG PCO2 29.2 mmHg (35-45); ABG PH Result 7.41 (7.35-7.45); Arterial Blood Gas Hematocrit 37.1 % (37-47); Blood Gas Allen Test Pos; Blood Gas LPM 1.0 %; Blood Gas Operator Identificat WALCI; Blood Gas Sample Site Radial, right; Blood Gas Sample Type Arterial; HCO3 ABG 18.7 mmol/L (22-26); PO2 ABG 89.6 mmHg (80.0-100.0)
--- NOTE | 2025-09-04 17:51 | P.PN_ITS ---
Subjective 2 Subjective: Juli Gonzalez is a 20 year old female with past medical history of asthma gets admitted here after having sudden onset of shortness of breath wheezing and cough subsides today. Denies any sick exposures. Had asthma when she was 10 years of age and had been off of inhalers since then. In ER she was treated with DuoNebs given Solu-Medrol. Started on oxygen after she was found to be hypoxic and tachycardic. Currently on 2 L nasal cannula tolerating well. ABG shows a pH of 7.43/pCO2 of 34.5 PaO2 57.1. Does smoke marijuana but denies cigarette smoke or vaping. 09/04/2025 Has been having tachycardia episodes as well as mild increased shortness of breath. Rhinovirus positive. 1 L nasal cannula Vitals/I&O/Wt Last Vital Signs Temp 99.2 F 09/04/25 13:30 Pulse 123 H 09/04/25 15:30 Resp 28 H 09/04/25 14:02 BP 107/60 09/04/25 15:30 Pulse Ox 91 09/04/25 15:30 O2 Del Method Nasal Cannula 09/04/25 13:41 O2 Flow Rate 1 09/04/25 13:41 09/04/25 09/04/25 09/04/25 06:59 14:59 22:59 Intake Total 120 / 1560 1533.333 / 1533.333 0 / 1533.333 Output Total 450 / 450 Balance 120 / 1560 1083.333 / 1083.333 0 / 1083.333 Weight last 48 hrs Weight 198 lb 13.711 oz Weight 198 lb 13.711 oz Weight 190 lb Physical Exam 2 Narrative: Per RN General: alert, NAD HEENT: EOMI Pulmonary: Wheezing bilaterally bilaterally Cardiovascular: rrr, nl s1s2, Abdomen: soft, nt, nd, no r/g, Extremities: no edema Neurologic: grossly intact Agree with above exam Data 09/04/25 03:29 09/04/25 03:29 Micro: Microbiology 09/03/25 16:49 Blood Culture - Preliminary Blood NEGATIVE TO DATE 09/03/25 16:47 Blood Culture - Preliminary Blood NEGATIVE TO DATE A&P Assessment and plan 1. Acute respiratory failure with hypoxia: 2. Asthma exacerbation: Plan: # Acute asthma exacerbation-patient's respiratory status is indicated lobe impending respiratory failure. Patient is currently tachycardic tachypneic, hypoxic.. Currently at risk for deterioration Continue ipratropium nebulizers along with albuterol. Solu-Medrol 125 every 8 Stopped Brovana secondary to tachycardia issues but most likely will be hypovolemic as well continue Pulmicort nebulizers ABG reviewed pH today 7.41/pCO2 of 29-monitor pending CO2 But still very hypoxic O2 sat is 89% most likely secondary to rhinovirus bronchiolitis High risk for respiratory compromise and failure with need for intubation. Will watch closely in the ICU Discussed case with Dr. Viveros. # Acute respiratory insufficiency # Rhinovirus bronchiolitis # Tachycardia Patient's tachycardia is most likely secondary to infection although underlying SVT cannot be ruled out. I have instructed the nurses to get an EKG and if SVT shows she might need adenosine. In the meantime we will give 500 mL normal saline bolus # Peripheral eosinophilia- Continue Singulair she was previously on it but quit many years ago # Obesity The high probability of a clinically significant, sudden or life threatening deterioration of the patient's [Respiratory, cardiac and renal] system(s) required my full and direct attention, intervention and personal management. The critical care time is as shown. This time is in addition to time spent performing any reported procedures but includes the following: [x] Data and vital sign review and interpretation [x] Patient assessment, examination and intervention [x] Documentation [x] Medication orders and management Critical Care Time (min): 31 Medical decision making level-high high MDM includes number and complexity of problems actively addressed during encounter, amount and/or complexity of data reviewed/ordered [ previous or external records, resulted lab(s)/test(s), ordered lab(s)/test(s), independent historian, independent test interpretation and other healthcare professional discussion] and described risk of complication, morbidity or mortality of management as documented This documentation was created by [employer] outdoor studies professor software (known for inherent outdoor studies professor error). Every effort was made to assure accuracy of outdoor studies professor. Any obvious errors or omissions should be clarified with the author of the document This encounter was conducted via secure two-way interactive audiovisual telemedicine as part of tele-ICU multidisciplinary rounds. Verbal consent was obtained from the patient for the telemedicine encounter. The patient was located at [place], [place], and the provider was virtual. Individuals present at the bedside included [bedside nurse, respiratory therapist, local attending, etc.]. The audiovisual connection quality was adequate for clinical assessment, and the total pfhb-yu-ison time was 32 minutes. Participated in structured bedside multidisciplinary round with the local ICU team, reviewing current diagnostic hypotheses, active problems, and treatment plan. Evidence- based clinical protocols and care performance indicators were discussed with the bedside team. Clinical recommendations generated and communicated to the bedside team. PDMP PDMP Reviewed: Not Reviewed Attestations 2 Medical Necessity Statement*: Acute respiratory insufficiency at risk for deterioration Coding Level of Care Code Critical Care >/= 30 minutes Diagnoses Acute respiratory failure with hypoxia J96.01 Asthma exacerbation J45.901
[2025-09-04] MEDS: levofloxacin-dextrose 5 % 750 MG/150 ML PREMIX 100 MG IV (18:07)
[2025-09-04] MEDS: ondansetron 2 mg/ML SDV 2 mL 4 MG IVP (19:58)
[2025-09-04] MEDS: pantoprazole 40 mg SDV IVP (21:26)
--- NOTE | 2025-09-04 21:32 | P.PN_ITS ---
Subjective 2 Subjective: This morning she is doing better. However, in the afternoon after an episode of cough with noted tachypnea, becoming tachycardic, still diminished air entry. Vitals/I&O/Wt Last Vital Signs Temp 99.2 F 09/04/25 13:30 Pulse 128 H 09/04/25 20:40 Resp 22 H 09/04/25 20:40 BP 124/61 09/04/25 18:00 Pulse Ox 96 09/04/25 20:40 O2 Del Method Room Air 09/04/25 20:40 O2 Flow Rate 1 09/04/25 13:41 09/04/25 09/04/25 09/04/25 06:59 14:59 22:59 Intake Total 120 / 1560 1533.333 / 1533.333 740 / 2273.333 Output Total 450 / 450 Balance 120 / 1560 1083.333 / 1083.333 740 / 1823.333 Weight last 48 hrs Weight 90.2 kg Weight 90.2 kg Weight 86.183 kg Physical Exam 2 Narrative: Accompanied by her . Const: COMMON NORMALS: patient oriented x3 and alert GENERAL APPEARANCE: c ooperative ORIENTATION/CONSCIOUSNESS: Yes awake HENMT: COMMON NORMALS: oropharynx normal Neck/C-Spine: COMMON NORMALS: no JVD Resp: AUSCULTATION: wheezes (Mild wheeze) and diminished lung sounds Cardio: COMMON NORMALS: no JVD, regular rhythm, S1 normal heart sound present, S2 normal heart sound present and No murmurs present (Cardio) RATE: t achycardic RHYTHM: regular rhythm HEART SOUNDS: S1 normal heart sound present and S2 normal heart sound present GI: COMMON NORMALS: Normal to inspection, nondistended, normoactive bowel sounds present, Soft to palpation and non-tender PALPATION: Yes Soft to palpation Extremity: COMMON NORMALS: no joint enlargement and no pedal edema Neuro: COMMON NORMALS: patient oriented x3 and moves all extremities S ENSORIUM/ORIENTATION: Yes alert Skin: COMMON NORMALS: no rashes or lesions noted GENERAL SKIN EXAM: no rashes or lesions noted Data 09/04/25 03:29 09/04/25 03:29 Micro: Microbiology 09/03/25 16:49 Blood Culture - Preliminary Blood NEGATIVE TO DATE 09/03/25 16:47 Blood Culture - Preliminary Blood NEGATIVE TO DATE A&P Assessment and plan 1. Tachycardia: Episode of tachycardia variable between 130s up to 150s-(1 episode of 160s), appearing after episode of cough, initially with tachypnea, diminished air entry, wheezing, given additional breathing treatments, continues treatment, additional dose of methylprednisolone. 2 g magnesium. With improvement in air entry. Not tachypneic. Still tachycardic. With Valsalva, carotid massage heart rate is coming down to 130s. Sinus tachycardia on twelve-lead EKG. Does not have any appearance of SVT. Consideration of possible medication effect, possible withdrawal from propranolol, beta-blockers held due to acute asthma exacerbation. Did discuss with pulmonology. Possible effect of aformoterol, discontinued. ABG obtained. Continue assessment and management in ICU. 2. Acute respiratory failure with hypoxia: Severe asthma exacerbation : Continue to rhino enterovirus infection. Acute onset dyspnea with wheezing, tachypnea, and hypoxia; ABG showed mild respiratory alkalosis (pH 7.43, CO2 34.5) with hypoxemia (PO2 57.1) on 2 L nasal cannula. Viral testing negative; chest X-ray unremarkable. Minimal eosinophilia. Started on montelukast. - Continue IV corticosteroid therapy. Increase dose of Solu-Medrol. Monitor for risk of hyperglycemia, hypertension, gastritis, encephalopathy. - Administer breathing treatments - Inhaled corticosteroids - Initiate respiratory therapy consultation with oxygen therapy - Pulmonology consultation (Dr. Lozada). Discussed. Reviewed note. - Admit to intensive care unit for close monitoring with plan to transfer out if improving - Start supplemental oxygen; monitor oxygen requirements; consider home oxygen if needed - Reviewed MRSA PCR, negative - Pending urine bacterial antigens - Collect sputum culture - Hold any NSAIDs (in case contributing to eosinophilia) - Provide antibiotic coverage due to productive cough - Repeated magnesium 2 g in ED Acute bronchitis : Productive cough with yellow sputum; chest X-ray unremarkable; elevated WBC with neutrophilia. - Provide antibiotic coverage due to productive cough - Collect sputum culture - Mucinex flutter valve Hypoxia : O2 saturation 85% on room air on arrival; improved to 92% with supplemental oxygen. D-dimer not elevated. Low probability PE - Start and titrate supplemental oxygen - Monitor oxygen saturation and clinical status - Assess for need for home oxygen upon improvement Plan: Productive cough : Cough productive of sputum, occasionally yellow; chest X-ray unremarkable. - Provide antibiotic coverage - Collect sputum culture - Mucinex flutter valve Leukocytosis : Resolved. chemistry otherwise unremarkable; D-dimer not elevated. - Provide antibiotic coverage due to suspected bronchitis - Follow culture results (sputum; MRSA PCR; urine bacterial antigens) Chest pressure : Non-sharp chest pressure; no hemoptysis; D-dimer not elevated; chest X-ray unremarkable. EKG with sinus rhythm. Some T wave flattening in aVL and V2. Diarrhea (1.5 months) : Watery diarrhea multiple times daily for approximately 1.5 months, often after eating; no blood in stool reported. With mild eosinophilia. Collect ova and parasites. Collect C. difficile. Dizziness : Recent episodes with walking, nearly syncope; may be related to hypoxia. Vomiting (this morning) : Single episode reported this morning; onset of shortness of breath preceded vomiting. Benign brain tumor : Previously followed at [facility]; last follow-up approximately two years ago; currently reports dizziness and neuropathy. - Recommend follow-up with prior neurologist at [facility] Environmental allergies : Known history; no recent increase in allergic symptoms reported. Chronic sinus infection : Historical; no acute sinus symptoms reported currently. Requested to confirm home medications. PDMP PDMP Reviewed: Not Reviewed Attestations 2 Medical Necessity Statement*: Continue admission for assessment of management of acute respiratory failure with hypoxia, severe asthma exacerbation, acute bronchitis as above. Coding Level of Care Code Critical Care >/= 30 minutes Critical care time (in minutes): 40 The high probability of a clinically significant, sudden or life threatening deterioration, as referenced in this documentation, required my full and direct attention, intervention and personal management. The critical care time shown is in addition to time spent performing any reported separately billable procedures and includes the following: [x] Data and vital sign review and interpretation [x ] Patient assessment, examination and intervention [x] Medication orders and management [x] Patient/Family updates as able [x] Care Coordination and Documentation. Diagnoses Tachycardia R00.0 Acute respiratory failure with hypoxia J96.01
[2025-09-04] MEDS: methylPREDNISolone sod succ 125 mg/2 mL INJ IVP (21:51)
--- NOTE | 2025-09-04 22:52 | PC.NURSE ---
Patient vomiting and has pulse rate in 120's. Physician notified of patients vital signs and ordered clonidine 0.1 PO TID, metoprolol 25 mg PO BID, and an NS fluid bolus. Patient stated that she takes propranolol 20 mg BID at home per neurologist. Physcian said to hold metoprolol and give propranolol instead.
[2025-09-05] VITALS (29 sets, daily range): BP systolic 98–130; BP diastolic 59–96; PULSE 60–107; RESP 16–29; TEMP 36.7–37; O2SAT 89–98
[2025-09-05] MEDS: methylPREDNISolone sod succ 125 mg/2 mL INJ IVP ×2 (05:11→13:03)
[2025-09-05 09:34] LABS: Hematocrit 39.3 % (36-47); Hemoglobin 12.50 g/dL (11.27-16.99); Mean Corpuscular HGB Conc 31.8 g/dL (30-55); Mean Corpuscular Hemoglobin 29.1 pg (27-33); Mean Corpuscular Volume 91.4 fl (85-98); Nucleated Red Blood Cells % 0 %; Platelet Count 270 10^3/cmm (157-399); Red Blood Count 4.30 10^6/uL (3.85-5.65); White Blood Count 21.67 10^3/uL (3.29-11.43)
[2025-09-05 09:52] LABS: Blood Urea Nitrogen 10 mg/dL (6-20); Calcium 9.2 mg/dL (8.5-10.5); Carbon Dioxide 22 mmol/L (22-29); Chloride 103 mmol/L (98-107); Glucose 122 mg/dL (65-115); Osmolality Calculated 282 mOsm/kg (285-295); Sodium 136 mmol/L (136-145)
[2025-09-05 09:54] LABS: Anion Gap 15.1 (5-19); Potassium 4.1 mmol/L (3.5-5.1)
--- NOTE | 2025-09-05 10:10 | PM.PN ---
Subjective Subjective: Subjectively feeling better today. Wheezing, air entry improving. Still having some cough, but improving. Tachycardia with improvement. Feeling anxious in the afternoon and feeling somewhat claustrophobic, feeling that she wants to go home. Discussed with her in the morning and again in the afternoon regarding importance of continued treatment, risk of respiratory decompensation, failure, arrest in case of leaving too soon. She verbalized understanding, agreement with continuation of treatment. Will be moved out of the ICU. Vitals/I&O/Wt Last Vital Signs Temp 98.6 F 09/05/25 00:00 Pulse 80 09/05/25 08:09 Resp 16 09/05/25 07:57 BP 120/80 09/05/25 05:30 Pulse Ox 94 09/05/25 07:57 O2 Del Method Nasal Cannula 09/05/25 07:57 O2 Flow Rate 1 09/05/25 07:57 09/04/25 09/05/25 09/05/25 22:59 06:59 14:59 Intake Total 980 / 2513.333 480 / 2993.333 Output Total 1000 / 1450 Balance 980 / 2063.333 -520 / 1543.333 Weight last 48 hrs Weight 93 kg Weight 90.2 kg Weight 90.2 kg Weight 86.183 kg Physical Exam Const: COMMON NORMALS: patient oriented x3 and alert GENERAL APPEARANCE: cooperative ORIENTATION/CONSCIOUSNESS: Yes awake HENMT: COMMON NORMALS: oropharynx normal Neck/C-Spine: COMMON NORMALS: no JVD Resp: COMMON NORMALS: normal respiratory effort and clear to auscultation bilaterally AUSCULTATION: clear to auscultation bilaterally Cardio: COMMON NORMALS: no JVD, regular rhythm, S1 normal heart sound present, S2 normal heart sound present and No murmurs present (Cardio) RHYTHM: regular rhythm HEART SOUNDS: S1 normal heart sound present and S2 normal heart sound present GI: COMMON NORMALS: Normal to inspection, nondistended, normoactive bowel sounds present, Soft to palpation and non-tender PALPATION: Yes Soft to palpation Extremity: COMMON NORMALS: no joint enlargement and no pedal edema Neuro: COMMON NORMALS: patient oriented x3 and moves all extremities SENSORIUM/ORIENTATION: Yes alert Skin: COMMON NORMALS: no rashes or lesions noted GENERAL SKIN EXAM: no rashes or lesions noted Data 09/05/25 09:15 09/05/25 09:15 Micro: Microbiology 09/03/25 16:49 Blood Culture - Preliminary Blood NEGATIVE TO DATE 09/03/25 16:47 Blood Culture - Preliminary Blood NEGATIVE TO DATE A&P Assessment and plan 1. Acute respiratory failure with hypoxia: Severe asthma exacerbation : Continue to rhino enterovirus infection. Improved air entry, improving tachypnea, cough. Tachycardia improved. Feeling anxious, restless, claustrophobic, decrease corticosteroid dose to 60 mg. Continue to wean down depending on condition. Continue empiric antibiotic. Montelukast. Reviewed pulmonology note. Acute onset dyspnea with wheezing, tachypnea, and hypoxia; ABG showed mild respiratory alkalosis (pH 7.43, CO2 34.5) with hypoxemia (PO2 57.1) on 2 L nasal cannula. Viral testing negative; chest X-ray unremarkable. Minimal eosinophilia. Started on montelukast. - Decrease IV corticosteroid therapy. Increase dose of Solu-Medrol. Monitor for risk of hyperglycemia, hypertension, gastritis, encephalopathy. - Administer breathing treatments - Inhaled corticosteroids - Initiate respiratory therapy consultation with oxygen therapy - Start supplemental oxygen; monitor oxygen requirements; consider home oxygen if needed - Reviewed MRSA PCR, negative - Pending urine bacterial antigens - Collect sputum culture - Hold any NSAIDs (in case contributing to eosinophilia) - Provide antibiotic coverage due to productive cough - Repeated magnesium 2 g in ED Acute bronchitis : Productive cough with yellow sputum; chest X-ray unremarkable; elevated WBC with neutrophilia. - Provide antibiotic coverage due to productive cough - Collect sputum culture - Mucinex flutter valve Hypoxia : O2 saturation 85% on room air on arrival; improved to 92% with supplemental oxygen. D-dimer not elevated. Low probability PE - Start and titrate supplemental oxygen - Monitor oxygen saturation and clinical status - Assess for need for home oxygen upon improvement 2. Tachycardia: Improved. Plan: Anxious: Feeling claustrophobic, very anxious/restless. Agreeable to stay to continue treatment. Will decrease corticosteroid dose down to 60 mg. Alprazolam as needed for anxiety, made available more frequently. may stay with her through the night. Medical surgical bed is being prepared for her so she can transfer out of ICU. Propranolol was resumed last night. Productive cough : Cough productive of sputum, occasionally yellow; chest X-ray unremarkable. - Provide antibiotic coverage - Collect sputum culture - Mucinex flutter valve Leukocytosis : Resolved. chemistry otherwise unremarkable; D-dimer not elevated. - Provide antibiotic coverage due to suspected bronchitis - Follow culture results (sputum; MRSA PCR; urine bacterial antigens) Chest pressure : Resolved. Non-sharp chest pressure; no hemoptysis; D-dimer not elevated; chest X-ray unremarkable. EKG with sinus rhythm. Some T wave flattening in aVL and V2. Diarrhea (1.5 months) : Watery diarrhea multiple times daily for approximately 1.5 months, often after eating; no blood in stool reported. With mild eosinophilia. Collect ova and parasites. Collect C. difficile. Dizziness : Recent episodes with walking, nearly syncope; may be related to hypoxia. Vomiting (this morning) : Single episode reported this morning; onset of shortness of breath preceded vomiting. Benign brain tumor : Previously followed at [facility]; last follow-up approximately two years ago; currently reports dizziness and neuropathy. History of anoxic injury. - Recommend follow-up with prior neurologist at [facility] Environmental allergies : Known history; no recent increase in allergic symptoms reported. Chronic sinus infection : Historical; no acute sinus symptoms reported currently. Requested to confirm home medications. PDMP PDMP Reviewed: Not Reviewed Attestations Medical Necessity Statement*: Continue admission for assessment of management of severe asthma exacerbation, acute bronchitis as above. and High MDM includes amount and/or complexity of data reviewed/ordered [ previous or external records, resulted lab(s)/test(s), ordered lab(s)/test(s), independent historian and other healthcare professional discussion] and described risk of complication, morbidity or mortality of management as documented Diagnoses Acute respiratory failure with hypoxia J96.01 Tachycardia R00.0
--- NOTE | 2025-09-05 14:23 | PC.NURSE ---
Patient requesting md to discharge her, Dr. Tripp called patient not ready for discharge to due high doses of steroid iv and recent asthmatic attack -patient and family made aware of this. Patient crying to family - family states will not take home against medical advice. Patient informed of right to sign out against medical advice if desires. Dr Lozada called per Dr. Tripp request- also stated patient needs to stay (patient status reviewed) and if leaves should be against medical advice. 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 Dr. Tan made aware- new order obtained for xanax which patient refused. Patient only on pulse ox at this time due to pulling off cardiac leads. Will attempt to replace when patient becomes calm.
--- NOTE | 2025-09-05 17:06 | PC.NURSE ---
Home meds: Removed from room, listed. Locked up in ICU #4 locker.
[2025-09-05] MEDS: pantoprazole 40 mg SDV IVP (20:23)
[2025-09-05] MEDS: methylPREDNISolone sod succ 125 mg/2 mL INJ 60 MG IVP (21:58)
[2025-09-06] VITALS (16 sets, daily range): BP systolic 89–124; BP diastolic 58–75; PULSE 51–69; RESP 15–18; TEMP 36.5–37.4; O2SAT 91–95
[2025-09-06 05:14] LABS: Hematocrit 39.9 % (36-47); Hemoglobin 12.60 g/dL (11.27-16.99); Mean Corpuscular HGB Conc 31.6 g/dL (30-55); Mean Corpuscular Hemoglobin 29.0 pg (27-33); Mean Corpuscular Volume 91.9 fl (85-98); Nucleated Red Blood Cells % 0 %; Platelet Count 270 10^3/cmm (157-399); Red Blood Count 4.34 10^6/uL (3.85-5.65); White Blood Count 17.22 10^3/uL (3.29-11.43)
[2025-09-06 05:32] LABS: Anion Gap 14.7 (5-19); Blood Urea Nitrogen 13 mg/dL (6-20); Calcium 9.0 mg/dL (8.5-10.5); Carbon Dioxide 23 mmol/L (22-29); Chloride 102 mmol/L (98-107); Glucose 123 mg/dL (65-115); Osmolality Calculated 283 mOsm/kg (285-295); Potassium 3.7 mmol/L (3.5-5.1); Sodium 136 mmol/L (136-145)
[2025-09-06] MEDS: methylPREDNISolone sod succ 125 mg/2 mL INJ 60 MG IVP ×2 (06:12→14:32)
[2025-09-06] MEDS: ondansetron 2 mg/ML SDV 2 mL 4 MG IVP (11:05)
--- NOTE | 2025-09-06 23:27 | P.PN_ITS ---
Subjective 2 Subjective: Feeling better, but wheezing this morning. Weaned off oxygen. Anxious in the afternoon. Vitals/I&O/Wt Last Vital Signs Temp 98.2 F 09/06/25 20:00 Pulse 69 09/06/25 21:34 Resp 15 09/06/25 20:10 BP 117/64 09/06/25 20:58 Pulse Ox 94 09/06/25 20:10 O2 Del Method Room Air 09/06/25 20:10 O2 Flow Rate 1 09/05/25 07:57 09/06/25 09/06/25 09/07/25 14:59 22:59 06:59 Intake Total 240 / 240 Balance 240 / 240 Weight last 48 hrs Weight 97.211 kg Weight 93 kg Physical Exam 2 Narrative: Accompanied by her who is sleeping during her first visit, by bedside second visit. Const: COMMON NORMALS: patient oriented x3 and alert GENERAL APPEARANCE: c ooperative ORIENTATION/CONSCIOUSNESS: Yes awake HENMT: COMMON NORMALS: oropharynx normal Neck/C-Spine: COMMON NORMALS: no JVD Resp: COMMON NORMALS: normal respiratory effort and clear to auscultation bilaterally AUSCULTATION: clear to auscultation bilaterally, wheezes (Mild wheeze) and diminished lung sounds Cardio: COMMON NORMALS: no JVD, regular rhythm, S1 normal heart sound present, S2 normal heart sound present and No murmurs present (Cardio) RATE: t achycardic RHYTHM: regular rhythm HEART SOUNDS: S1 normal heart sound present and S2 normal heart sound present GI: COMMON NORMALS: Normal to inspection, nondistended, normoactive bowel sounds present, Soft to palpation and non-tender PALPATION: Yes Soft to palpation Extremity: COMMON NORMALS: no joint enlargement and no pedal edema Neuro: COMMON NORMALS: patient oriented x3 and moves all extremities S ENSORIUM/ORIENTATION: Yes alert Skin: COMMON NORMALS: no rashes or lesions noted GENERAL SKIN EXAM: no rashes or lesions noted Data 09/06/25 04:54 09/06/25 04:54 A&P Assessment and plan 1. Acute respiratory failure with hypoxia: Severe asthma exacerbation : Continue to rhino enterovirus infection. Improving symptoms but still wheezing this morning. Continued on IV steroids through the day. In the afternoon getting anxious again not really wanting to return home. Breathing improving. Weaned off oxygen. Discussed with her transition to oral corticosteroid tonight, and if continues to do well discharge home in the morning. Sputum culture uncollected. Bacterial antigens on collected. Viral testing negative; chest X-ray unremarkable. Minimal eosinophilia. montelukast. - Transition to p.o. steroids. Monitor for risk of hyperglycemia, hypertension, gastritis, encephalopathy. With likely corticosteroid induced anxiety. Taper off as tolerating. Xanax as needed. - Administer breathing treatments - Inhaled corticosteroids - Hold any NSAIDs (in case contributing to eosinophilia) - Provide antibiotic coverage due to productive cough. Check procalcitonin. Consider DC antibiotic. Acute bronchitis : Productive cough with yellow sputum; chest X-ray unremarkable; elevated WBC with neutrophilia. - Provide antibiotic coverage due to productive cough. Consider de-escalation. - Mucinex flutter valve Hypoxia : Resolved. D-dimer not elevated. Low probability PE Follow-up with pulmonology after discharge. 2. Tachycardia: Improved. Plan: Anxious: Likely steroid-induced acute encephalopathy. Wean down stairs. Xanax as needed. Leukocytosis : Corticosteroid related demargination Chest pressure : Resolved. Diarrhea (1.5 months) : Watery diarrhea multiple times daily for approximately 1.5 months, often after eating; no blood in stool reported. With mild eosinophilia. Collect ova and parasites. Collect C. difficile. Dizziness : Recent episodes with walking, nearly syncope; may be related to hypoxia. Vomiting : Resolved Benign brain tumor : Previously followed at [facility]; last follow-up approximately two years ago; currently reports dizziness and neuropathy. History of anoxic injury. - Recommend follow-up with prior neurologist at [facility] Environmental allergies : Known history; no recent increase in allergic symptoms reported. Chronic sinus infection : Historical; no acute sinus symptoms reported currently. Requested to confirm home medications. PDMP PDMP Reviewed: Not Reviewed Attestations 2 Medical Necessity Statement*: Continue admission for assessment of management of severe asthma exacerbation, acute bronchitis as above. and High MDM includes amount and/or complexity of data reviewed/ordered [ resulted lab(s)/test(s), ordered lab(s)/test(s), independent historian and other healthcare professional discussion] and described risk of complication, morbidity or mortality of management as documented Diagnoses Acute respiratory failure with hypoxia J96.01 Tachycardia R00.0
[2025-09-07] VITALS (10 sets, daily range): BP systolic 110–145; BP diastolic 67–91; PULSE 49–101; RESP 14–18; TEMP 36.4–36.7; O2SAT 92–95
[2025-09-07 03:47] LABS: Procalcitonin 0.05 ng/mL (0-0.5)
--- NOTE | 2025-09-07 10:54 | PM.DCS ---
Discharge Providers Date of Admission: 09/03/25 16:52 Date of Discharge: September 07, 2025 Attending Provider at Admission: Donell Viveros Attending Provider at Discharge: Daryn Bishop MD Primary Care Provider: Han Trinh MD Diagnoses at Discharge Discharge Diagnosis 1. Acute respiratory failure with hypoxia: 2. Tachycardia: Details from hospital stay: Resolved 3. Asthma exacerbation: Other Information Additional DC diagnoses/information: Acute hypoxic respiratory failure, resolved Acute asthma exacerbation, resolved Acute upper respiratory viral infection, rhinovirus Chronic mild intermittent asthma Reason for Visit Reason for Visit: SOB Brief History: Juli Gonzalez is a 20 year old female with a history of migraines, environmental allergies, chronic sinus infection, benign brain tumor, and childhood asthma (no issues since adolescence), presents with sudden onset shortness of breath beginning last night, accompanied by productive cough with occasional yellow sputum and chest pressure. Denies fever, hemoptysis, and history of deep vein thrombosis. Reports dizziness with walking recently, nearly syncope, which may coincide with low oxygen levels. Vomited this morning; has watery diarrhea for approximately 1.5 months occurring multiple times daily, often after eating, without blood. Denies dysuria and rashes. Does not smoke tobacco, denies vaping, smokes marijuana, and denies alcohol use. Not previously on home oxygen. Emergency department course: On arrival, oxygen saturation was 85% on room air; started on supplemental oxygen with saturation increasing to 92%. Initial respiratory rate was 32, improving to 20?21. Blood pressure 101/66, temperature 98.4, heart rate 77. Laboratory studies showed white blood cell count 18.46, hemoglobin 13.4, platelets 289, neutrophils 15, monocytes 1, eosinophils 0.9. D-dimer 0.39 (not elevated). Arterial blood gas on 2 L nasal cannula: pH 7.43, CO2 34.5, PO2 57.1. Chemistry panel unremarkable. Nasal swabs for influenza, RSV, and COVID were negative. Chest X-ray was unremarkable. Received Solu-Medrol 125 mg IV and 2 g magnesium. Initially admitted to intensive care unit for closer monitoring. Pulmonology consultation requested (Dr. Lozada). Plans discussed included continued IV corticosteroids, breathing treatments, possible inhaled steroids, respiratory therapy consultation, following viral study results, sputum culture collection, MRSA PCR, urine bacterial antigens, holding NSAIDs, Mucinex flutter valve, and providing antibiotic coverage for productive cough. Hospital Course Hospital Course 20-year-old female history of childhood asthma presented to the ED on 09/03/2025 with acute hypoxic respiratory failure received IV steroids, weaned off oxygen, transition to oral corticosteroids last night, condition improving. No hypoxia overnight. Patient stable today, wants to go home. Doing better with IV steroids, will continue outpatient with prednisone 40 mg daily, follow-up with pulmonology. Albuterol prescribed, to be taken as needed. Patient was not on any maintenance inhaled corticosteroids at home, and has not had any recent asthma exacerbations aside from this 1 caused by the acute respiratory infection, rhinovirus. Patient discharged in stable condition to follow-up with PCP and pulmonary medicine consult for chronic asthma management, if needed. Physical Exam Const: COMMON NORMALS: no acute distress and no limitations EXAM LIMITATIONS: no altered mental status GENERAL APPEARANCE: cooperative and comfortable ORIENTATION/CONSCIOUSNESS: Yes awake, Yes oriented to person and Yes oriented to place HENMT: COMMON NORMALS: normocephalic and moist oral mucous membranes HEAD & SCALP: normocephalic Eye: COMMON NORMALS: Equal, round and reactive pupils present, EOMs intact bilaterally and conjunctivae normal CONJUNCTIVA: Yes conjunctivae normal PUPIL: Yes Equal, round and reactive pupils present Neck/C-Spine: COMMON NORMALS: no JVD Lymph: LYMPHATIC: no lymphadenopathy noted Chest: COMMONS NORMALS: normal inspection of the chest Resp: COMMON NORMALS: normal respiratory effort, No retractions, No use of accessory muscles and clear to auscultation bilaterally AUSCULTATION: clear to auscultation bilaterally Cardio: COMMON NORMALS: no JVD and regular rate RATE: regular rate GI: COMMON NORMALS: Normal to inspection, nondistended, normoactive bowel sounds present and Soft to palpation PALPATION: Yes Soft to palpation Neuro: SENSORIUM/ORIENTATION: Yes oriented to person and Yes oriented to place Discharge Data Studies Completed and Pending Completed Studies During Hospitalization Category Date Time Status XR chest 1V portable [id number] Stat Exams 09/03/25 15:45 Completed Pending at discharge Category Date Time Status Bacterial Antigen Routine Lab 09/03/25 19:40 Uncollected Blood Culture Stat Lab 09/03/25 16:49 Results C.Diff PCR (Lab) Routine Lab 09/03/25 19:40 Uncollected Complete Blood Count w/Auto AM LABS Lab 09/08/25 04:00 Ordered Complete Blood Count w/Auto AM LABS Lab 09/09/25 04:00 Ordered Complete Blood Count w/Auto AM LABS Lab 09/10/25 04:00 Ordered Comprehensive Metabolic Panel AM LABS Lab 09/08/25 04:00 Ordered Comprehensive Metabolic Panel AM LABS Lab 09/09/25 04:00 Ordered Comprehensive Metabolic Panel AM LABS Lab 09/10/25 04:00 Ordered Legionella Antigen STAT Routine Lab 09/03/25 19:40 Uncollected OVA and Parasites, Conc and PE Routine Lab 09/03/25 19:40 Uncollected Sputum Culture and Gram Stain Routine Lab 09/03/25 19:40 Uncollected Radiology Impressions Chest X-Ray 09/03/25 15:45 Impression: Negative chest. Laboratory Results WBC 17.22 10^3/uL (3.29-11.43) H 09/06/25 04:54 Corrected WBC Cancelled 09/05/25 08:15 RBC 4.34 10^6/uL (3.85-5.65) 09/06/25 04:54 Hgb 12.60 g/dL (11.27-16.99) 09/06/25 04:54 Hct 39.9 % (36-47) 09/06/25 04:54 MCV 91.9 fl (85-98) 09/06/25 04:54 MCH 29.0 pg (27-33) 09/06/25 04:54 MCHC 31.6 g/dL (30-55) 09/06/25 04:54 RDW 14.4 % (12.1-15.1) 09/06/25 04:54 Plt Count 270 10^3/cmm (157-399) 09/06/25 04:54 MPV 11.6 fL (7.4-10.4) H 09/06/25 04:54 Gran % Cancelled 09/05/25 08:15 Neut % (Auto) 87.6 % 09/06/25 04:54 Lymph % (Auto) 8.3 % 09/06/25 04:54 [place] % (Auto) 3.3 % 09/06/25 04:54 Eos % (Auto) 0.0 % 09/06/25 04:54 Baso % (Auto) 0.1 % 09/06/25 04:54 Neut # (Auto) 15.08 10^3/uL (1.8-7.7) H 09/06/25 04:54 Lymph # (Auto) 1.4 10^3/uL (0.8-4.8) 09/06/25 04:54 [place] # (Auto) 0.6 10^3/uL (0.2-0.9) 09/06/25 04:54 Eos # (Auto) 0.0 10^3/uL (0.0-0.8) 09/06/25 04:54 Baso # (Auto) 0.0 10^3/uL (0.0-0.1) 09/06/25 04:54 Absolute Gran (auto) Cancelled 09/05/25 08:15 Nucleated RBC % (auto) 0 % 09/06/25 04:54 Nucleated RBCs # 0.0 /100WBC 09/06/25 04:54 D-Dimer 0.39 ug/mLFEU (0-0.59) 09/03/25 16:04 Specimen Type Arterial 09/04/25 14:15 Sample Site Radial, right 09/04/25 14:15 ABG pH 7.41 (7.35-7.45) 09/04/25 14:15 ABG pCO2 29.2 mmHg (35-45) L 09/04/25 14:15 ABG pO2 89.6 mmHg (80.0-100.0) 09/04/25 14:15 ABG HCO3 18.7 mmol/L (22-26) L 09/04/25 14:15 ABG O2 Saturation 90.9 09/03/25 15:50 ABG Base Excess -4.8 mmol/L (-2.0-2.0) L 09/04/25 14:15 Nehemiah Test Pos 09/04/25 14:15 A-a O2 Gradient 6.4 mmHg (5-10) 09/03/25 15:50 Hematocrit 37.1 % (37-47) 09/04/25 14:15 Hgb O2 Saturation 89.9 % (95-100) L 09/03/25 15:50 Carboxyhemoglobin 1.2 %THgb (0.4-20.1) 09/03/25 15:50 Methemoglobin 0.0 % (0.4-1.5) L 09/03/25 15:50 Total Hemoglobin 13.6 g/dL (12-16) 09/03/25 15:50 Sodium 141.0 mmol/L (131-143) 09/03/25 15:50 Potassium 4.0 mmol/L (3.5-5.0) 09/03/25 15:50 Glucose 100.0 mg/dL (70-115) 09/03/25 15:50 Ionized Calcium 1.2 mmol/L (1.1-1.4) 09/03/25 15:50 O2 Delivery Device Nc 09/04/25 14:15 O2 Liters/Min 1.0 % 09/04/25 14:15 Vice President And Portfolio Manager ID [place]ci 09/04/25 14:15 Sodium 136 mmol/L (136-145) 09/06/25 04:54 Potassium 3.7 mmol/L (3.5-5.1) 09/06/25 04:54 Chloride 102 mmol/L (98-107) 09/06/25 04:54 Carbon Dioxide 23 mmol/L (22-29) 09/06/25 04:54 Anion Gap 14.7 (5-19) 09/06/25 04:54 BUN 13 mg/dL (6-20) 09/06/25 04:54 Creatinine 0.6 mg/dL (0.5-0.9) 09/06/25 04:54 GFR Calculation 125.0 mL/min (90-130) 09/06/25 04:54 Glucose 123 mg/dL (65-115) H 09/06/25 04:54 Calculated Osmolality 283 mOsm/kg (285-295) L 09/06/25 04:54 Lactic Acid 0.6 mmol/L (0.5-2.2) 09/03/25 16:04 Calcium 9.0 mg/dL (8.5-10.5) 09/06/25 04:54 Magnesium 2.3 mg/dL (1.7-2.3) 09/04/25 03:29 Total Bilirubin 0.7 mg/dL (0.15-1.2) 09/03/25 16:04 AST 14 U/L (0-32) 09/03/25 16:04 ALT 11 U/L (0-33) 09/03/25 16:04 Alkaline Phosphatase 94 U/L (35-105) 09/03/25 16:04 Total Protein 7.3 g/dL (6.6-8.7) 09/03/25 16:04 Albumin 4.0 g/dL (3.5-5.2) 09/03/25 16:04 Globulin 3.3 g/dL (1.3-4.6) 09/03/25 16:04 Procalcitonin 0.05 ng/mL (0-0.5) 09/07/25 02:53 Urine Color Yellow (Yellow) 09/04/25 12:00 Urine Appearance Clear (CLEAR) 09/04/25 12:00 Urine pH 6.0 (5-7) 09/04/25 12:00 Ur Specific [place] 1.019 (1.005-1.030) 09/04/25 12:00 Urine Protein Negative (Negative) 09/04/25 12:00 Urine Glucose (UA) Negative (Normal) 09/04/25 12:00 Urine Ketones 2+ (Negative) H 09/04/25 12:00 Urine Blood Negative (Negative) 09/04/25 12:00 Urine Nitrate Negative (Negative) 09/04/25 12:00 Urine Bilirubin Negative (Negative) 09/04/25 12:00 Urine Urobilinogen 0.2 mg/dL (Negative) 09/04/25 12:00 Ur Leukocyte Esterase Negative (Negative) 09/04/25 12:00 Urine RBC 0-2 /hpf (0-2) 09/04/25 12:00 Urine WBC 0-5 /hpf (0-5) 09/04/25 12:00 Ur Squamous Epith Cells 0-5 /hpf (0-5) 09/04/25 12:00 Amorphous Sediment Not Reportable 09/04/25 12:00 Urine Bacteria None seen /hpf (NONE) 09/04/25 12:00 Hyaline Casts 1.21 /lpf 09/04/25 12:00 Nasal MRSA (PCR) Not detected (Not Detecte) 09/03/25 20:58 Adenovirus (PCR) Not detected (NOT DETECT) 09/03/25 16:04 C. pneumoniae DNA (PCR) Not detected (NOT DETECT) 09/03/25 16:04 Coronavirus 229E (PCR) Not detected (NOT DETECT) 09/03/25 16:04 Human Metapneumovir PCR Not detected (NOT DETECT) 09/03/25 16:04 Influenza A (H1) PCR Not detected (NOT DETECT) 09/03/25 16:04 Influenza A (PCR) Negative (Negative) 09/03/25 16:04 Influ A (H1/09) PCR Not detected (NOT DETECT) 09/03/25 16:04 Influenza A (H3) PCR Not detected (NOT DETECT) 09/03/25 16:04 Influenza Type A (PCR) Not detected (NOT DETECT) 09/03/25 16:04 Influenza Type B (PCR) Negative (Negative) 09/03/25 16:04 Influenza Type B (PCR) Not detected (NOT DETECT) 09/03/25 16:04 M. pneumoniae (PCR) Not detected (NOT DETECT) 09/03/25 16:04 Parainfluenza 1 (PCR) Not detected (NOT DETECT) 09/03/25 16:04 Parainfluenza 2 (PCR) Not detected (NOT DETECT) 09/03/25 16:04 Parainfluenza 3 (PCR) Not detected (NOT DETECT) 09/03/25 16:04 Parainfluenza 4 (PCR) Not detected (NOT DETECT) 09/03/25 16:04 RSV (PCR) Negative (Negative) 09/03/25 16:04 RSV Type A (PCR) Not detected (NOT DETECT) 09/03/25 16:04 RSV Type B (PCR) Not detected (NOT DETECT) 09/03/25 16:04 Entero/Rhino (PCR) Detected (NOT DETECT) A 09/03/25 16:04 SARS-CoV-2 (PCR) Negative (Negative) 09/03/25 16:04 SARS-CoV-2 (PCR) Not detected (NOT DETECT) 09/03/25 16:04 Vitals Last Vital Signs Temp 98.0 F 09/07/25 07:55 Pulse 49 L 09/07/25 07:55 Resp 15 09/07/25 07:55 BP 110/67 09/07/25 07:55 Pulse Ox 92 09/07/25 07:55 O2 Del Method Room Air 09/07/25 07:55 O2 Flow Rate 1 09/05/25 07:57 Discharge Plan Discharge Patient Disposition: Home Condition: Stable Prescriptions: New albuterol sulfate [Ventolin HFA] 90 mcg/actuation HFA aerosol inhaler 2 inh inhalation Q8H PRN (Reason: shortness of breath or wheezing) Qty: 6.7 0RF prednisone 20 mg tablet 40 mg PO DAILY Qty: 5 0RF Continued propranolol 20 mg tablet 20 mg PO BID Qty: 180 1RF rizatriptan 5 mg tablet See Rx Instructions PO .COMPLEX Qty: 9 3RF Rx Instructions: Take 1 tablet by mouth at onset of headache; if no relief, may repeat 1 tablet after at least 2 hours. escitalopram oxalate 20 mg tablet 20 mg PO DAILY Qty: 90 1RF triamcinolone acetonide [Nasacort Allergy] 55 mcg aerosol,spray 2 spray intranasal DAILY Qty: 16.9 0RF Rx Instructions: administer into each nostril levocetirizine [Xyzal] 5 mg tablet 5 mg PO DAILY PRN (Reason: allergy symptoms) Qty: 60 1RF Discontinued naproxen [Naprosyn] 500 mg Tablet 500 mg PO BID PRN (Reason: Pain) indomethacin 50 mg capsule 50 mg PO TID PRN (Reason: pain) Qty: 14 0RF Rx Instructions: administer with food or milk Discharge Order = DC NOW: Discharge Order (Routine); Ordered 09/07/25 Ordered By: Daryn Bishop Referrals: Edward Lozada MD [Physician, Pulmonology] - 2 weeks Referral Note: Asthma management Han Trinh MD [Primary Care Provider, Family Practice] - 4-7 days Discharge Diet: Usual diet Discharge Activity: Resume usual activity Patient Instructions: Asthma - Adult, Asthma Exacerbation - Adult Activity Restrictions/Additional Instructions: Since you do not have chronic asthma you have childhood asthma, with intermittent exacerbations do the recent viral infection, I do not suspect that he will need long-term inhaled corticosteroids like Pulmicort etc., since you are taking it before. But I prescribed you a 5-day course of prednisone, and a rescue inhaler to take as needed, 2 puffs every 8 hours minimum, do not overlap puffs. Follow-up with pulmonology or your primary care doctor for further management if you continue to have symptoms of wheezing, cough, difficulty breathing. As far as your FMLA request, that will have to be filled and signed by your primary care doctor. I did send you a work note, however. Discharge Attestations Time Spent in Discharge Care*: greater than 30 min Quality Metrics Clinical Quality Measures [ No reported AMI, CVA or VTE this stay] Coding Level of Care Code 34840 Diagnoses Acute respiratory failure with hypoxia J96.01 Tachycardia R00.0 Asthma exacerbation J45.901
--- NOTE | 2025-09-07 11:24 | PM.DCS ---
Discharge Providers Date of Admission: 09/03/25 16:52 Date of Discharge: September 07, 2025 Attending Provider at Admission: Donell Viveros Attending Provider at Discharge: Daryn Bishop MD Primary Care Provider: Han Trinh MD Diagnoses at Discharge Discharge Diagnosis 1. Acute respiratory failure with hypoxia: 2. Tachycardia: Reason for Visit Reason for Visit: SOB Hospital Course Hospital Course 20-year-old female history of childhood asthma presented to the ED on 09/03/2025 with acute hypoxic respiratory failure received IV steroids, weaned off oxygen, transition to oral corticosteroids last night, condition improving. No hypoxia overnight. Discharge Data Studies Completed and Pending Completed Studies During Hospitalization Category Date Time Status XR chest 1V portable [id number] Stat Exams 09/03/25 15:45 Completed Pending at discharge Category Date Time Status Bacterial Antigen Routine Lab 09/03/25 19:40 Uncollected Blood Culture Stat Lab 09/03/25 16:49 Results C.Diff PCR (Lab) Routine Lab 09/03/25 19:40 Uncollected Complete Blood Count w/Auto AM LABS Lab 09/08/25 04:00 Ordered Complete Blood Count w/Auto AM LABS Lab 09/09/25 04:00 Ordered Complete Blood Count w/Auto AM LABS Lab 09/10/25 04:00 Ordered Comprehensive Metabolic Panel AM LABS Lab 09/08/25 04:00 Ordered Comprehensive Metabolic Panel AM LABS Lab 09/09/25 04:00 Ordered Comprehensive Metabolic Panel AM LABS Lab 09/10/25 04:00 Ordered Legionella Antigen STAT Routine Lab 09/03/25 19:40 Uncollected OVA and Parasites, Conc and PE Routine Lab 09/03/25 19:40 Uncollected Sputum Culture and Gram Stain Routine Lab 09/03/25 19:40 Uncollected Radiology Impressions Chest X-Ray 09/03/25 15:45 Impression: Negative chest. Laboratory Results WBC 17.22 10^3/uL (3.29-11.43) H 09/06/25 04:54 Corrected WBC Cancelled 09/05/25 08:15 RBC 4.34 10^6/uL (3.85-5.65) 09/06/25 04:54 Hgb 12.60 g/dL (11.27-16.99) 09/06/25 04:54 Hct 39.9 % (36-47) 09/06/25 04:54 MCV 91.9 fl (85-98) 09/06/25 04:54 MCH 29.0 pg (27-33) 09/06/25 04:54 MCHC 31.6 g/dL (30-55) 09/06/25 04:54 RDW 14.4 % (12.1-15.1) 09/06/25 04:54 Plt Count 270 10^3/cmm (157-399) 09/06/25 04:54 MPV 11.6 fL (7.4-10.4) H 09/06/25 04:54 Gran % Cancelled 09/05/25 08:15 Neut % (Auto) 87.6 % 09/06/25 04:54 Lymph % (Auto) 8.3 % 09/06/25 04:54 [place] % (Auto) 3.3 % 09/06/25 04:54 Eos % (Auto) 0.0 % 09/06/25 04:54 Baso % (Auto) 0.1 % 09/06/25 04:54 Neut # (Auto) 15.08 10^3/uL (1.8-7.7) H 09/06/25 04:54 Lymph # (Auto) 1.4 10^3/uL (0.8-4.8) 09/06/25 04:54 [place] # (Auto) 0.6 10^3/uL (0.2-0.9) 09/06/25 04:54 Eos # (Auto) 0.0 10^3/uL (0.0-0.8) 09/06/25 04:54 Baso # (Auto) 0.0 10^3/uL (0.0-0.1) 09/06/25 04:54 Absolute Gran (auto) Cancelled 09/05/25 08:15 Nucleated RBC % (auto) 0 % 09/06/25 04:54 Nucleated RBCs # 0.0 /100WBC 09/06/25 04:54 D-Dimer 0.39 ug/mLFEU (0-0.59) 09/03/25 16:04 Specimen Type Arterial 09/04/25 14:15 Sample Site Radial, right 09/04/25 14:15 ABG pH 7.41 (7.35-7.45) 09/04/25 14:15 ABG pCO2 29.2 mmHg (35-45) L 09/04/25 14:15 ABG pO2 89.6 mmHg (80.0-100.0) 09/04/25 14:15 ABG HCO3 18.7 mmol/L (22-26) L 09/04/25 14:15 ABG O2 Saturation 90.9 09/03/25 15:50 ABG Base Excess -4.8 mmol/L (-2.0-2.0) L 09/04/25 14:15 Nehemiah Test Pos 09/04/25 14:15 A-a O2 Gradient 6.4 mmHg (5-10) 09/03/25 15:50 Hematocrit 37.1 % (37-47) 09/04/25 14:15 Hgb O2 Saturation 89.9 % (95-100) L 09/03/25 15:50 Carboxyhemoglobin 1.2 %THgb (0.4-20.1) 09/03/25 15:50 Methemoglobin 0.0 % (0.4-1.5) L 09/03/25 15:50 Total Hemoglobin 13.6 g/dL (12-16) 09/03/25 15:50 Sodium 141.0 mmol/L (131-143) 09/03/25 15:50 Potassium 4.0 mmol/L (3.5-5.0) 09/03/25 15:50 Glucose 100.0 mg/dL (70-115) 09/03/25 15:50 Ionized Calcium 1.2 mmol/L (1.1-1.4) 09/03/25 15:50 O2 Delivery Device Nc 09/04/25 14:15 O2 Liters/Min 1.0 % 09/04/25 14:15 Environmental Service Aide ID [place] 09/04/25 14:15 Sodium 136 mmol/L (136-145) 09/06/25 04:54 Potassium 3.7 mmol/L (3.5-5.1) 09/06/25 04:54 Chloride 102 mmol/L (98-107) 09/06/25 04:54 Carbon Dioxide 23 mmol/L (22-29) 09/06/25 04:54 Anion Gap 14.7 (5-19) 09/06/25 04:54 BUN 13 mg/dL (6-20) 09/06/25 04:54 Creatinine 0.6 mg/dL (0.5-0.9) 09/06/25 04:54 GFR Calculation 125.0 mL/min (90-130) 09/06/25 04:54 Glucose 123 mg/dL (65-115) H 09/06/25 04:54 Calculated Osmolality 283 mOsm/kg (285-295) L 09/06/25 04:54 Lactic Acid 0.6 mmol/L (0.5-2.2) 09/03/25 16:04 Calcium 9.0 mg/dL (8.5-10.5) 09/06/25 04:54 Magnesium 2.3 mg/dL (1.7-2.3) 09/04/25 03:29 Total Bilirubin 0.7 mg/dL (0.15-1.2) 09/03/25 16:04 AST 14 U/L (0-32) 09/03/25 16:04 ALT 11 U/L (0-33) 09/03/25 16:04 Alkaline Phosphatase 94 U/L (35-105) 09/03/25 16:04 Total Protein 7.3 g/dL (6.6-8.7) 09/03/25 16:04 Albumin 4.0 g/dL (3.5-5.2) 09/03/25 16:04 Globulin 3.3 g/dL (1.3-4.6) 09/03/25 16:04 Procalcitonin 0.05 ng/mL (0-0.5) 09/07/25 02:53 Urine Color Yellow (Yellow) 09/04/25 12:00 Urine Appearance Clear (CLEAR) 09/04/25 12:00 Urine pH 6.0 (5-7) 09/04/25 12:00 Ur Specific [place] 1.019 (1.005-1.030) 09/04/25 12:00 Urine Protein Negative (Negative) 09/04/25 12:00 Urine Glucose (UA) Negative (Normal) 09/04/25 12:00 Urine Ketones 2+ (Negative) H 09/04/25 12:00 Urine Blood Negative (Negative) 09/04/25 12:00 Urine Nitrate Negative (Negative) 09/04/25 12:00 Urine Bilirubin Negative (Negative) 09/04/25 12:00 Urine Urobilinogen 0.2 mg/dL (Negative) 09/04/25 12:00 Ur Leukocyte Esterase Negative (Negative) 09/04/25 12:00 Urine RBC 0-2 /hpf (0-2) 09/04/25 12:00 Urine WBC 0-5 /hpf (0-5) 09/04/25 12:00 Ur Squamous Epith Cells 0-5 /hpf (0-5) 09/04/25 12:00 Amorphous Sediment Not Reportable 09/04/25 12:00 Urine Bacteria None seen /hpf (NONE) 09/04/25 12:00 Hyaline Casts 1.21 /lpf 09/04/25 12:00 Nasal MRSA (PCR) Not detected (Not Detecte) 09/03/25 20:58 Adenovirus (PCR) Not detected (NOT DETECT) 09/03/25 16:04 C. pneumoniae DNA (PCR) Not detected (NOT DETECT) 09/03/25 16:04 Coronavirus 229E (PCR) Not detected (NOT DETECT) 09/03/25 16:04 Human Metapneumovir PCR Not detected (NOT DETECT) 09/03/25 16:04 Influenza A (H1) PCR Not detected (NOT DETECT) 09/03/25 16:04 Influenza A (PCR) Negative (Negative) 09/03/25 16:04 Influ A (H1/09) PCR Not detected (NOT DETECT) 09/03/25 16:04 Influenza A (H3) PCR Not detected (NOT DETECT) 09/03/25 16:04 Influenza Type A (PCR) Not detected (NOT DETECT) 09/03/25 16:04 Influenza Type B (PCR) Negative (Negative) 09/03/25 16:04 Influenza Type B (PCR) Not detected (NOT DETECT) 09/03/25 16:04 M. pneumoniae (PCR) Not detected (NOT DETECT) 09/03/25 16:04 Parainfluenza 1 (PCR) Not detected (NOT DETECT) 09/03/25 16:04 Parainfluenza 2 (PCR) Not detected (NOT DETECT) 09/03/25 16:04 Parainfluenza 3 (PCR) Not detected (NOT DETECT) 09/03/25 16:04 Parainfluenza 4 (PCR) Not detected (NOT DETECT) 09/03/25 16:04 RSV (PCR) Negative (Negative) 09/03/25 16:04 RSV Type A (PCR) Not detected (NOT DETECT) 09/03/25 16:04 RSV Type B (PCR) Not detected (NOT DETECT) 09/03/25 16:04 Entero/Rhino (PCR) Detected (NOT DETECT) A 09/03/25 16:04 SARS-CoV-2 (PCR) Negative (Negative) 09/03/25 16:04 SARS-CoV-2 (PCR) Not detected (NOT DETECT) 09/03/25 16:04 Vitals Last Vital Signs Temp 98.0 F 09/07/25 07:55 Pulse 49 L 09/07/25 07:55 Resp 15 09/07/25 07:55 BP 110/67 09/07/25 07:55 Pulse Ox 92 09/07/25 07:55 O2 Del Method Room Air 09/07/25 07:55 O2 Flow Rate 1 09/05/25 07:57 Discharge Plan Discharge Patient Disposition: Home Condition: Stable Prescriptions: New albuterol sulfate [Ventolin HFA] 90 mcg/actuation HFA aerosol inhaler 2 inh inhalation Q8H PRN (Reason: shortness of breath or wheezing) Qty: 6.7 0RF prednisone 20 mg tablet 40 mg PO DAILY Qty: 5 0RF Continued propranolol 20 mg tablet 20 mg PO BID Qty: 180 1RF rizatriptan 5 mg tablet See Rx Instructions PO .COMPLEX Qty: 9 3RF Rx Instructions: Take 1 tablet by mouth at onset of headache; if no relief, may repeat 1 tablet after at least 2 hours. escitalopram oxalate 20 mg tablet 20 mg PO DAILY Qty: 90 1RF triamcinolone acetonide [Nasacort Allergy] 55 mcg aerosol,spray 2 spray intranasal DAILY Qty: 16.9 0RF Rx Instructions: administer into each nostril levocetirizine [Xyzal] 5 mg tablet 5 mg PO DAILY PRN (Reason: allergy symptoms) Qty: 60 1RF Discontinued naproxen [Naprosyn] 500 mg Tablet 500 mg PO BID PRN (Reason: Pain) indomethacin 50 mg capsule 50 mg PO TID PRN (Reason: pain) Qty: 14 0RF Rx Instructions: administer with food or milk Discharge Order = DC NOW: Discharge Order (Routine); Ordered 09/07/25 Ordered By: Daryn Bishop Referrals: Edward Lozada MD [Physician, Pulmonology] - 2 weeks Referral Note: Asthma management Han Trinh MD [Primary Care Provider, Family Practice] - 4-7 days Discharge Diet: Usual diet Discharge Activity: Resume usual activity Patient Instructions: Asthma - Adult, Asthma Exacerbation - Adult Activity Restrictions/Additional Instructions: Since you do not have chronic asthma you have childhood asthma, with intermittent exacerbations do the recent viral infection, I do not suspect that he will need long-term inhaled corticosteroids like Pulmicort etc., since you are taking it before. But I prescribed you a 5-day course of prednisone, and a rescue inhaler to take as needed, 2 puffs every 8 hours minimum, do not overlap puffs. Follow-up with pulmonology or your primary care doctor for further management if you continue to have symptoms of wheezing, cough, difficulty breathing. As far as your FMLA request, that will have to be filled and signed by your primary care doctor. I did send you a work note, however. Coding Level of Care Code Acute Code for Chg Fwd Diagnoses Acute respiratory failure with hypoxia J96.01 Tachycardia R00.0
--- NOTE | 2025-09-07 12:11 | PC.NURSE ---
Discharge paperwork discussed with patient and spouse. All questions were answered. Patient's spouse carried out all of patient's belongings to personal vehicle. Patient ambulated to exit with spouse, escorted by this nurse at 1200.
== END 2025-09-07 12:00 | disposition home or self-care (01) | DRG 189 ==
LOC: ER 16:20 → ICU 19:10 → MEDSURG 09-05 20:44
PROVIDERS: Physician Assistant; Admitting Provider Internal Medicine; Emergency Provider Family Medicine; PCP Family Medicine; Visit Provider Internal Medicine
DX: J96.01 Acute respiratory failure with hypoxia (principal); J45.21 Mild intermittent asthma with (acute) exacerbation; E87.3 Alkalosis; J21.0 Acute bronchiolitis due to respiratory syncytial virus; G93.49 Other encephalopathy; E66.9 Obesity, unspecified; J96.02 Acute respiratory failure with hypercapnia; F40.240 Claustrophobia; R00.0 Tachycardia, unspecified; R42 Dizziness and giddiness; J32.9 Chronic sinusitis, unspecified; R07.89 Other chest pain; D33.2 Benign neoplasm of brain, unspecified; G62.9 Polyneuropathy, unspecified; R11.10 Vomiting, unspecified; R19.7 Diarrhea, unspecified; F41.9 Anxiety disorder, unspecified; Z79.899 Other long term (current) drug therapy; Z88.3 Allergy status to other anti-infective agents; Z11.52 Encounter for screening for COVID-19; Z68.37 Body mass index [BMI] 37.0-37.9, adult; T38.0X5A Adverse effect of glucocorticoids and synthetic analogues, initial encounter
CPT/HCPCS: 36415; 36600; 71045; 80048; 80051; 80053; 81001; 82330; 82803; 82805; 83605; 83735; 84145; 85025; 85378; 87040; 87486; 87581; 87633; 87637; 93005; 94640; 96365; 96372; 96375; 99285; J1650; J1956; J2060; J2405; J2470; J2919; J3475; J7030; J7040; J7512; J7605; J7611; J7626; J9999